=== PATIENT | female | born 1995 | race Caucasian/White ===

== ENCOUNTER 2019-10-31 18:53 | Emergency (ER) | payer OTHER, SELFPAY ==
--- NOTE | ~2019-10-31 | US_ITS ---
EXAMINATION: US OB <= 14 weeks fetus DATE: 10/31/2019 22:21 INDICATION: Abdomen pain TECHNIQUE: Real-time transabdominal and transvaginal obstetric ultrasound. FINDINGS: No prior studies for comparison. The uterus measures 8.6 x 5.5 x 6.3 cm. There is an intrauterine gestational sac, with pole asha ntified. The crown rump length measures 0.27 cm, which correlates with a estimated gestational age o f 5 weeks 6 days. Gestational sac measurements correspond to 6 week 3 day gestation. heart tone s are identified measuring 105 bpm. There is a small subchorionic hemorrhage measuring 9 x 8 x 3 mm. Left ovary is normal. There is a hypoechoic structure in the right ovary measuring up to 2.1 cm, poss ibly involuting corpus luteal cyst. No free fluid. IMPRESSION: 1. SL IUP with an EGA of 6 weeks, 1 days (EDC by current ultrasound of 06/24/2020). 2: Small subchorionic hemorrhage. 3: Probable involuting corpus luteal cyst of the right ovary measuring up to 2.1 cm. Reviewed, dictated and finalized at location A. IMPRESSION: 1. SL IUP with an EGA of 6 weeks, 1 days (EDC by current ultrasound of 06/25/19). 2: Small subchorionic hemorrhage. 3: Probable involuting corpus luteal cyst of the right ovary measuring up to 2 .1 cm.
[2019-10-31 18:58] VITALS: BP 126/61; PULSE 104; RESP 18; TEMP 36.8; O2SAT 100
[2019-10-31 20:57] VITALS: BP 161/99; PULSE 96; RESP 16; O2SAT 100
--- NOTE | 2019-10-31 21:34 | ED.ABDPAIN ---
HPI - Abdominal Pain General Chief Complaint: Abdominal Pain Stated Complaint: 6 weeks preg/ abd pain Source: RN notes reviewed History of Present Illness HPI narrative: Patient presents emergency department from home for abdominal pain. Patient states she is presently 5 weeks and has not seen NETWORK PROGRAMMER at this point. Patient states she developed lower abdominal pain described as cramping bilaterally this morning. States is associated with nausea. Patient denies having any vomiting diarrhea or vaginal bleeding. States she took no pain medication at home.. Patient is G2, P1 Related Data Allergies Allergy/AdvReac Type Severity Reaction Status Date / Time escitalopram Allergy Unknown Unknown Verified 10/31/19 20:59 sulfamethoxazole Allergy Unknown Nausea and Verified 10/31/19 20:59 Vomiting trimethoprim Allergy Unknown Nausea and Verified 10/31/19 20:59 Vomiting Review of Systems Review of Systems: Narrative: Gen.: Denies fevers or chills ENT: Denies congestion Respiratory: Denies shortness of breath or cough CV: Denies chest pain or palpitations GI: See HPI denies burning, urgency, frequency or hematuria, reports Musculoskeletal: Denies back pain or muscle pain Neuro: Denies numbness, tingling, weakness or focal weakness Skin: Denies rash Except as documented, all other systems reviewed and negative PMFSH Past Medical History Medical History (Updated 10/31/19 @ 23:48 by Harman Erickson DO) Patient denies significant medical history Social History Social History (Updated 10/31/19 @ 21:35 by Harman Erickson DO) Smoking status: Never smoker Gender identity (if verbalized by the patient): Female Exam Narrative: Exam Narrative: APPEARANCE: No acute distress, nontoxic, resting in bed HEENT: Normocephalic, atraumatic, OMM RESPIRATORY: No respiratory distress, clear to auscultation bilaterally with no rhonchi wheezing or rales CARDIOVASCULAR: RRR s murmur ABDOMINAL: Soft, nondistended, tender palpation right lower quadrant left lower quadrant, no tenderness right upper quadrant left upper quadrant, no rebound or guarding MUSCULOSKELETAl: Moves all extremities. No clubbing, cyanosis or edema. NEURO: Awake and alert. Following commands, speech normal, no focal deficits SKIN:: Warm, dry. Normal Color PSYCHIATRIC: Normal affect/mood Course Course Emergency Course: Called and discussed with NETWORK PROGRAMMER follow-up in 1-2 days for further on-call physician treatment and evaluation Dr. Mancilla. Agrees with plan for discharge at this time Patient states that they are feeling much better at this time. States abdominal pain has resolved. Repeat abdominal exam shows the patient's abdomen to be soft and nontender. Discussed with patient results of workup and diagnosis. Discussed need for follow-up with primary care physician, reasons to return to the emergency department in proper use of medication. Patient understands and agrees to current treatment plan. Patient states she is followed by Carissa Calvin at [facility] and that is who she will be following with Vital Signs Vital signs: Vital Signs Temperature 98.3 F 10/31/19 18:58 Pulse Rate 104 H 10/31/19 18:58 Respiratory Rate 18 10/31/19 18:58 Blood Pressure 126/61 10/31/19 18:58 Pulse Oximetry 100 10/31/19 18:58 Temperature 98.3 F 10/31/19 18:58 Pulse Rate 86 10/31/19 22:27 Respiratory Rate 17 10/31/19 22:27 Blood Pressure 161/99 H 10/31/19 20:57 Pulse Oximetry 100 10/31/19 22:27 MDM - Abdominal Pain Lab Data Result diagrams: 10/31/19 21:29 10/31/19 21:29 Labs: Lab Results 10/31/19 10/31/19 10/31/19 Range/Units 21:29 21:29 21:29 WBC 7.9 (4.5-10.0) K/mm3 RBC 5.09 (4.2-5.4) M/mm3 Hgb 13.8 (12.0-15.0) g/dL Hct 42.8 (37.0-47.0) % MCV 84.1 (80-100) fl MCH 27.1 (26-34) pg MCHC 32.2 (32-36) g/dl RDW 13.1 (11.5-14.5) % Plt Count 2
[2019-10-31 21:35] LABS: Basophils Absolute Auto 0.1 K/mm3 (0.0-0.1); Basophils Percent Auto 0.8 % (0.2-1.2); Eosinophils Absolute Auto 0.1 K/mm3 (0-0.3); Eosinophils Percent Auto 1.8 % (0-4.4); Hematocrit 42.8 % (37.0-47.0); Hemoglobin 13.8 g/dL (12.0-15.0); Immature Granulocyte Absolute 0.03 K/mm3 (0.00-0.031); Immature Granulocyte Percent A 0.4 % (0-0.5); Lymphocytes Absolute Auto 1.69 K/mm3 (0.9-3.2); Lymphocytes Percent Auto 21.3 % (18.3-44.2); Mean Corpuscular HGB Conc 32.2 g/dl (32-36); Mean Corpuscular Hemoglobin 27.1 pg (26-34); Mean Corpuscular Volume 84.1 fl (80-100); Mean Platelet Volume 10.6 fl (7.4-10.4); Monocytes Absolute Auto 0.6 K/mm3 (0.1-0.6); Monocytes Percent Auto 7.7 % (2.6-8.5); Neutrophils Absolute Auto 5.4 K/mm3 (1.3-6.7); Platelet Count Result 263 k/mm3 (150-375); Red Blood Count 5.09 M/mm3 (4.2-5.4); Red Cell Distribution Width 13.1 % (11.5-14.5); White Blood Count 7.9 K/mm3 (4.5-10.0)
[2019-10-31 21:39] LABS: Add Urine Microscopic? YES; Appearance Urine Cloudy (Clear); Bacteria Urine Trace /hpf; Bilirubin Urine Negative (Negative); Blood Urine Negative (Negative); Color Urine Yellow (Yellow); Glucose Urine UA Negative (Negative); Ketones Urine Negative (Negative); Leukocyte Esterase Ur Trace LEU/UL (Negative); Mucus Urine Rare /lpf; Nitrate Urine Negative (Negative); Protein Urine Negative (Negative); RBC Urine 0-2 /hpf (0-2); Specific Grav Ur 1.011 (1.001-1.035); Squamous Epithelial Cell Urine Many /hpf (Few); Urobilinogen Urine Negative mg/dL (<2.0); WBC Urine 0-3 /hpf
[2019-10-31 21:47] LABS: Alanine Aminotransferase 28 U/L (4-35); Alkaline Phosphatase 58 U/L (38-126); Aspartate Amino Transferase 32 U/L (14-36); Bilirubin,Total 0.6 mg/dL (0.2-1.3); Blood Urea Nitrogen 10 mg/dL (7-17); Calcium 9.7 mg/dL (8.4-10.2); Carbon Dioxide 26 mmol/L (22-30); Chloride 101 mmol/L (98-107); Estimated CRCL calculation 114 ml/min; Estimated Glomerular Filt Rate > 60; Glucose 89 mg/dL (65-105); Lipase 92 U/L (23-300); Sodium 138 mmol/L (137-145)
--- NOTE | 2019-10-31 22:00 | PC.NURSE ---
Pt to US
[2019-10-31 22:27] VITALS: PULSE 86; RESP 17; O2SAT 100
[2019-10-31] MEDS: SODIUM CHLORIDE 0.9% IV 1,000 ML 999 ML IV CONT (22:29)
[2019-10-31] MEDS: PROMETHAZINE HCL 25 MG/ML AMPUL 12.5 MG IV PUSH (22:56)
[2019-11-01 00:32] VITALS: BP 148/76; PULSE 84; RESP 16; TEMP 36.7; O2SAT 100
== END 2019-11-01 00:33 | disposition home or self-care (01) ==
PROVIDERS: Emergency Provider Emergency Medicine; PCP Physician Assistant
DX: O26.891 Other specified pregnancy related conditions, first trimester (principal); R10.32 Left lower quadrant pain; R10.31 Right lower quadrant pain; Z3A.01 Less than 8 weeks gestation of pregnancy
CPT/HCPCS: 36415; 76801; 80053; 81001; 81025; 83690; 84702; 85025; 96365; 96375; 99284; J0131; J2550; J7030

== ENCOUNTER 2020-03-31 14:26 | Observation (INO) | payer OTHER, SELFPAY ==
[2020-03-31] VITALS (18 sets, daily range): BP systolic 66–117; BP diastolic 38–73; PULSE 106–127; TEMP 37; O2SAT 97–100; BMI 35.9
--- NOTE | 2020-03-31 14:26 | OBADM ---
This patient, Krista Mustafa, admitted to the OB room OB Post 116 for observation. Patient/family oriented to hospital policies and general routines including ID bracelet, bed and alarms, visiting hours, pain management, procedures, bathroom and other care routines, personal items, smoking policy, room service/diet, and visiting hours. Patient/Family are encouraged to report perceived risks to care and to ask questions if they do not understand what they are told or what they should do.
[2020-03-31 14:56] LABS: Glucose Point of Care 120 (65-105)
--- NOTE | 2020-03-31 15:00 | PC.NURSE ---
Pt states she feels dizzy and seeing spots. denies nausea, vomiting. BS 120. denies hx GDM. HR 120s denies heart palpitation.
[2020-03-31 15:12] LABS: Add Urine Microscopic? YES; Appearance Urine Cloudy (Clear); Bacteria Urine Trace /hpf; Bilirubin Urine Negative (Negative); Blood Urine Negative (Negative); Color Urine Yellow (Yellow); Glucose Urine UA Negative (Negative); Ketones Urine Trace mg/dL (Negative); Leukocyte Esterase Ur Trace LEU/UL (NEGATIVE); Mucus Urine Rare /lpf; Nitrate Urine Negative (Negative); Protein Urine 1+ mg/dL (Negative); Specific Grav Ur 1.014 (1.001-1.035); Squamous Epithelial Cell Urine Many /hpf (Few); Urobilinogen Urine Negative mg/dL (<2.0); WBC Urine 0-3 /hpf (0-3)
--- NOTE | 2020-03-31 15:16 | PCDIET ---
called Dr. Welch notified pt walk-in admission. report given pt complains of dizziness, BS, Vital sign. UA result. made aware of HR 120s, EKG was ordered. order deceived PO hydration. May discharge to home if EKG result is sinus tachycardia. follow up with primary OB doctor.
--- NOTE | 2020-03-31 15:20 | ECG_ITS ---
Measurements Intervals [place] Rate: 109 P: 20 IN: 141 QRS: 1 QRSD: 97 T: -8 QT: 328 QTc: 443 Interpretive Statements SINUS TACHYCARDIA VOLTAGE CRITERIA FOR LVH MINIMAL Q WAVES- HIGH LATERAL LEADS BORDERLINE T WAVE ABNORMALITY- INFERIOR LEADS ABNORMAL ECG Electronically Signed On 03-31-2020 15:45:49 EQUAL OPPORTUNITY REPRESENTATIVE by Kris Leahy D.O.
--- NOTE | 2020-03-31 15:41 | PC.NURSE ---
EKG at bedside. sinus tachycardia.
--- NOTE | 2020-04-02 07:09 | P.PNOB_ITS ---
OB - Triage/Final Diagnosis Visit Information Date of evaluation: 03/31/20 Reason for evaluation: other (dizziness, near syncope ) Evaluation Laboratory results: Laboratory Tests 03/31/20 03/31/20 14:47 14:53 POC Capillary Glucose 120 H Urine Color Yellow Urine Appearance Cloudy H Urine pH 7.0 Ur Specific [place] 1.014 Urine Protein 1+ H Urine Glucose (UA) Negative Urine Ketones Trace Ur Blood (Man) Negative Urine Nitrate Negative Urine Bilirubin Negative Urine Urobilinogen Negative Ur Leukocyte Esterase Trace H Urine RBC 3-5 H Urine WBC 0-3 Ur Squamous Epith Cells Many H Urine Bacteria Trace Hyaline Casts 1-2 Urine Mucus Rare
== END 2020-03-31 16:00 | disposition home or self-care (01) ==
PROVIDERS: Admitting Provider Student in an Organized Health Care Education/Training Program; PCP Physician Assistant; Visit Provider Student in an Organized Health Care Education/Training Program
DX: O26.893 Other specified pregnancy related conditions, third trimester (principal); R42 Dizziness and giddiness; R94.31 Abnormal electrocardiogram [ECG] [EKG]; Z3A.00 Weeks of gestation of pregnancy not specified
CPT/HCPCS: 81001; 87086; 87088; 93005; G0378; G0379

== ENCOUNTER 2021-07-23 12:59 | Outpatient (CLI) | payer OTHER, SELFPAY ==
--- NOTE | ~2021-07-23 | US_ITS ---
EXAMINATION: US thyroid EXAM DATE: 07/23/2021 14:01 INDICATION: Thyroid disorder. TECHNIQUE: Multiple grayscale and Doppler images of the thyroid were obtained (by a technologist who performed the scan) and subsequently reviewed. Individual nodules and recommendations may be reporte d in accordance with TI-RADS system as designated by the 2017 ACR White Paper TI-RADS committee. The re is no prior study for comparison. FINDINGS: The right thyroid lobe measures 4.7 x 2.0 x 2.3, the left measuring 4.5 x 1.9 x 1.5 cm. There is homo geneous thyroid echogenicity. No focal nodule is identified. IMPRESSION: 1. Unremarkable thyroid ultrasound exam. Reviewed, dictated and finalized at location B.
== END 2021-07-23 13:00 | disposition home or self-care (01) ==
PROVIDERS: PCP Nurse Practitioner Adult Health; Visit Provider Nurse Practitioner Adult Health
DX: E07.9 Disorder of thyroid, unspecified (principal)
CPT/HCPCS: 76536

== ENCOUNTER 2021-08-06 13:39 | Outpatient (CLI) | payer OTHER, SELFPAY ==
--- NOTE | 2021-08-06 | ECHO_ITS ---
Patient Info Name: Krista Mustafa Age: 25 years : 1995 Gender: Female Ht: 64 in Wt: 240 lbs BSA: 2.27 m2 HR: 78 bpm BP: 114 / 86 mmHg Technical Quality: Fair Exam Date: 08/06/2021 2:25 PM Exam Location: [facility] Patient Status: Outpatient Admit Date: 08/06/2021 Staff Ordering Physician: JuanjoseJuliet NP Teletype Mechanic: Cheyenne Carranza RDCS Attending Provider: CareyJuliet NP Exam Type: CA echo doppler color flow Study Info Indications - SHEA Complete two-dimensional, color flow and Doppler transthoracic echocardiogram is performed. Summary 1. Complete two-dimensional, color flow and Doppler transthoracic echocardiogram is performed. 2. Left ventricular chamber dimension is normal. 3. Left ventricular systolic function is normal, estimated at 60-65%. 4. The left ventricular diastolic function is normal. 5. E/e' 5 is not elevated. 6. There is trace tricuspid valve regurgitation. 7. No pulmonary hypertension, estimated pulmonary arterial systolic pressure is 26 mmHg. Left Ventricle E/e' 5 is not elevated. Left ventricular chamber dimension is normal. Left ventricular systolic function is normal, estimated at 60-65%. The left ventricular diastolic function is normal. Right Ventricle Right ventricular chamber dimension is normal. Right ventricular systolic function is normal. Left Atria Left atrial chamber dimension is normal. Right Atria Right atrial chamber dimension is normal. Aortic Valve The aortic valve is trileaflet. There is no aortic valve stenosis. There is no aortic valve regurgitation. Pulmonic Valve There is no pulmonic regurgitation. Mitral Valve There is no mitral valve stenosis. There is no mitral valve regurgitation. Tricuspid Valve There is trace tricuspid valve regurgitation. No pulmonary hypertension, estimated pulmonary arterial systolic pressure is 26 mmHg. Pericardium/Pleural There is no pericardial effusion. Inferior Vena Cava Normal inferior vena cava with >50% collapse upon inspiration consistent with normal right atrial pressure, 5 mmHg. Aorta The aortic root size at the sinus of Valsalva is normal. Left Ventricular Outflow Tract Name Value Normal LVOT 2D LVOT Diameter 2.0 cm LVOT Doppler LVOT Peak Gradient 6 mmHg LVOT Mean Gradient 3 mmHg LVOT VTI 21 cm LVOT VTI/AV VTI Ratio 1.0 LVOT Stroke Volume 65 ml LVOT CO 15.7 l/min LVOT CI 6.9 l/min/m2 Pulmonic Valve Name Value Normal PV Doppler PV Peak Gradient 4 mmHg Mitral Valve Name
== END 2021-08-06 13:40 | disposition home or self-care (01) ==
LOC: ANHCARD 13:40
PROVIDERS: PCP Nurse Practitioner Adult Health; Visit Provider Nurse Practitioner Adult Health
DX: R60.0 Localized edema (principal)
CPT/HCPCS: 93306

== ENCOUNTER 2023-12-12 17:15 | Emergency (ER) | payer OTHER, SELFPAY ==
--- NOTE | ~2023-12-12 | US_ITS ---
EXAMINATION: US abdomen limited DATE: 12/12/2023 17:57 INDICATION: Right upper quadrant abdominal pain TECHNIQUE: Multiple grayscale and Doppler ultrasound images of the abdomen were obtained. COMPARISON: CT dated 11/03/2013 FINDINGS: The pancreatic head and body are normal in appearance. The pancreatic tail is not visualized. Liver has normal echogenicity and contour, with a smooth surface. No liver lesion identified. No intrahepat ic biliary duct dilation suspected. Portal venous flow was seen in the hepatopetal, normal direction and has normal Doppler waveform. Visualized proximal inferior vena cava is normal. Multiple mobile ec hogenic and shadowing gallstones within the otherwise normal-appearing gallbladder. The common bile d uct is mildly dilated to C6-7 millimeters in maximal diameter. Sonographic Antonio sign was reported a s positive by the management associate. IMPRESSION: 1. Cholelithiasis with borderline common bile duct dilation measuring up to 6-7 mm but without intrah epatic biliary ductal dilation. Correlate with liver function tests and if clinically indicated could consider MRCP to assess for potential obstructing choledocholithiasis. 2. Positive sonographic Antonio sign but with normal nondilated gallbladder. Suspicion for acute deepika cystitis is low. Could consider HIDA scan for further evaluation as clinically indicated. Reviewed, dictated and finalized at location A. IMPRESSION: 1. Cholelithiasis with borderline common bile duct dilation measuring up to 6-7 mm but without intrahepatic biliary ductal dilation. Correlate with liver func tion tests and if clinically indicated could consider MRCP to assess for potent ial obstructing choledocholithiasis. 2. Positive sonographic Antonio sign but with normal nondilated gallbladder. Lina picion for acute cholecystitis is low. Could consider HIDA scan for further isidra luation as clinically indicated.
[2023-12-12 17:18] VITALS: BP 135/97; PULSE 99; RESP 16; TEMP 36.6; O2SAT 97
--- NOTE | 2023-12-12 17:21 | ED.ABDPAIN ---
HPI - Abdominal Pain General Chief Complaint: Abdominal Pain Stated Complaint: gallbladder attack Time Seen by Provider: 12/12/23 19:03 FOCUSED HPI: GENERAL: WELL-APPEARING, WELL-NOURISHED, AND IN NO ACUTE DISTRESS. HEAD: NORMOCEPHALIC, ATRAUMATIC. CHEST: CLEAR TO AUSCULTATION. NO RESPIRATORY DISTRESS. HEART: REGULAR RATE AND RHYTHM. NEURO: ALERT AND ORIENTED X3. PATIENT SCREENED IN TRIAGE AND INITIAL ORDERS PLACED. ADDITIONAL CARE AND DISPOSITION TO BE BASED UPON DIAGNOSTIC TESTING AND TREATMENT. 28 YO female presents to ER with c/o RUQ pain for over 1 month. States has been evaluated at multiple ER's in last 1 month, and dx with cholelithiasis. Has an appointment with gen surg tomorrow for surgical consultation for a cholecystectomy. Associated with n/v. Taking tylenol without improvement. Related Data Home Medications Medication Instructions Recorded Confirmed metoclopramide HCl 10 mg tablet 10 mg PO Q6H PRN Nausea 03/31/20 03/31/20 (Reglan) ondansetron HCl 4 mg tablet 4 mg PO Q6H 03/31/20 03/31/20 (Zofran) vit no.95-ferrous 1 tablet PO DAILY 03/31/20 03/31/20 fumarate 28 mg-folic acid 800 mcg tablet () Allergies Allergy/AdvReac Type Severity Reaction Status Date / Time escitalopram Allergy Unknown Unknown Verified 10/31/19 20:59 sulfamethoxazole Allergy Unknown Nausea and Verified 10/31/19 20:59 Vomiting trimethoprim Allergy Unknown Nausea and Verified 10/31/19 20:59 Vomiting PMFSH Past Medical History Medical History Patient denies significant medical history Social History Social History Smoking status: Never smoker Gender identity (if verbalized by the patient): Female Course Vital Signs Vital signs: Vital Signs Temperature 36.6 C 12/12/23 17:18 Pulse Rate 99 12/12/23 17:18 Respiratory Rate 16 12/12/23 17:18 Blood Pressure 135/97 H 12/12/23 17:18 Pulse Oximetry 97 12/12/23 17:18 Oxygen Delivery Room Air 12/12/23 17:18 Temperature 36.6 C 12/12/23 17:18 Pulse Rate 89 12/12/23 19:37 Respiratory Rate 18 12/12/23 19:37 Blood Pressure 127/88 12/12/23 19:37 Pulse Oximetry 98 12/12/23 19:37 Oxygen Delivery Room Air 12/12/23 17:18 MDM - Abdominal Pain Lab Data 12/12/23 17:37 12/12/23 17:36 Labs: Lab Results 12/12/23 12/12/23 12/12/23 Range/Units 17:36 17:37 17:42 WBC 8.3 (4.5-10.0) K/mm3 RBC 4.82 (4.2-5.4) M/mm3 Hgb 13.1 (12.0-15.0) g/dL Hct 40.8 (37.0-47.0) % MCV 84.6 (80-100) fl MCH 27.2 (26-34) pg MCHC 32.1 (32-36) g/dl RDW 13.0 (11.5-14.5) % Plt Count 268 (150-375) k/mm3 MPV 10.2 (7.4-10.4) fl Immature Gran % (Auto) 0.2 (0-0.5) % Neut % (Auto) 69.3 (45.5-73.1) % Lymph % (Auto) 22.6 (18.3-44.2) % Ray % (Auto) 6.5 (2.6-8.5) % Eos % (Auto) 1.0 (0-4.4) % Baso % (Auto) 0.4 (0.2-1.2) % Lymph # (Auto) 1.88 (0.9-3.2) K/mm3 Ray # (Auto) 0.5 (0.1-0.6) K/mm3 Eos # (Auto) 0.1 (0-0.3) K/mm3 Baso # (Auto) 0.0 (0.0-0.1) K/mm3 Abs Immat Gran (auto) 0.02 (0.00-0.031) K/mm3 Absolute Neuts (auto) 5.8 (1.3-6.7) K/mm3 Absolute Nucleated RBC 0.000 (0.0-0.012) K/mm3 Nucleated RBC % 0.0 (0.0-0.2) % PT 13.3 (11.1-14.7) Seconds INR 1.0 APTT 25.1 (22.3-36.8) Seconds Sodium 139 (137-145) mmol/L Potassium 3.9 (3.4-5.0) mmol/L Chloride 103 (98-107) mmol/L Carbon Dioxide 25 (22-30) mmol/L Anion Gap 11 (4-12) mmol/L BUN 7 (7-17) mg/dL Creatinine 0.80 (0.7-1.0) mg/dL Estim Creat Clear Calc 90 ml/min Estimated GFR > 60 (59 - ) Glucose 90 (65-110) mg/dL Calcium 9.7 (8.4-10.2) mg/dL Total Bilirubin 0.4 (0.2-1.3) mg/dL AST 19 (14-36) U/L ALT 11 (6-35) U/L Alkaline Phosphatase 62 (
[2023-12-12 17:44] LABS: BEDSIDEPREGUCG Negative
[2023-12-12 18:04] LABS: Basophils Percent Auto 0.4 % (0.2-1.2); Eosinophils Absolute Auto 0.1 K/mm3 (0-0.3); Hematocrit 40.8 % (37.0-47.0); Hemoglobin 13.1 g/dL (12.0-15.0); Immature Granulocyte Absolute 0.02 K/mm3 (0.00-0.031); Immature Granulocyte Percent A 0.2 % (0-0.5); Lymphocytes Absolute Auto 1.88 K/mm3 (0.9-3.2); Lymphocytes Percent Auto 22.6 % (18.3-44.2); Mean Corpuscular HGB Conc 32.1 g/dl (32-36); Mean Corpuscular Hemoglobin 27.2 pg (26-34); Mean Corpuscular Volume 84.6 fl (80-100); Mean Platelet Volume 10.2 fl (7.4-10.4); Monocytes Absolute Auto 0.5 K/mm3 (0.1-0.6); Monocytes Percent Auto 6.5 % (2.6-8.5); Neutrophils Absolute Auto 5.8 K/mm3 (1.3-6.7); Neutrophils Percent Auto 69.3 % (45.5-73.1); Platelet Count Result 268 k/mm3 (150-375); Red Blood Count 4.82 M/mm3 (4.2-5.4); White Blood Count 8.3 K/mm3 (4.5-10.0)
[2023-12-12 18:14] LABS: Alanine Aminotransferase 11 U/L (6-35); Albumin Level 4.6 g/dL (3.5-5.1); Alkaline Phosphatase 62 U/L (38-126); Anion Gap 11 mmol/L (4-12); Aspartate Amino Transferase 19 U/L (14-36); Bilirubin,Total 0.4 mg/dL (0.2-1.3); Blood Urea Nitrogen 7 mg/dL (7-17); Calcium 9.7 mg/dL (8.4-10.2); Carbon Dioxide 25 mmol/L (22-30); Chloride 103 mmol/L (98-107); Estimated CRCL calculation 90 ml/min; Estimated Glomerular Filt Rate > 60; Glucose 90 mg/dL (65-110); Lipase 43 U/L (23-300); Potassium 3.9 mmol/L (3.4-5.0); Sodium 139 mmol/L (137-145)
[2023-12-12 18:16] LABS: Prothrombin Time 13.3 Seconds (11.1-14.7)
[2023-12-12 18:17] LABS: Partial Thromboplastin Time 25.1 Seconds (22.3-36.8)
[2023-12-12 18:58] LABS: Add Urine Microscopic? NO; Appearance Urine Clear (Clear); Bilirubin Urine Negative (Negative); Blood Urine Negative (Negative); Color Urine Yellow (Yellow); Glucose Urine UA Negative (Negative); Ketones Urine Negative (Negative); Leukocyte Esterase Ur Negative LEU/UL (Negative); Nitrate Urine Negative (Negative); Protein Urine Negative (Negative); Specific Grav Ur 1.009 (1.001-1.035); Urobilinogen Urine 0.2 mg/dL (<2.0); pH Urine 7.5 (5.0-9.0)
--- NOTE | 2023-12-12 19:04 | ED.ABDPAIN ---
HPI - Abdominal Pain General Chief Complaint: Abdominal Pain Stated Complaint: gallbladder attack Time Seen by Provider: 12/12/23 19:03 Source: patient Mode of arrival: ambulatory Limitations: no limitations History of Present Illness HPI narrative: 28 YEARS OLD WHITE FEMALE HISTORY OF RIGHT UPPER QUADRANT PAIN AND GALLBLADDER ISSUES FOR YEARS, IS GETTING WORSE. HER WAS SEEN BY FACILITY SUPERVISOR AT [facility] AND SCHEDULED TO BE SEEN BY A SURGEON TOMORROW. FLARE UP OF PAIN STARTED LAST NIGHT, DENIES ANY FEVER, CHILLS, NAUSEA, VOMITING. PATIENT WOULD LIKE TO BE TAKING CARE BY FACILITY SUPERVISOR AND SURGEON IN OUR FACILITY BECAUSE THE OTHER HOSPITALIST FOR AWAY. PATIENT DOES NOT TAKE MEDICINE AT HOME, HEALTHY OTHERWISE. Related Data Home Medications Medication Instructions Recorded Confirmed metoclopramide HCl 10 mg tablet 10 mg PO Q6H PRN Nausea 03/31/20 03/31/20 (Reglan) ondansetron HCl 4 mg tablet 4 mg PO Q6H 03/31/20 03/31/20 (Zofran) vit no.95-ferrous 1 tablet PO DAILY 03/31/20 03/31/20 fumarate 28 mg-folic acid 800 mcg tablet () Allergies Allergy/AdvReac Type Severity Reaction Status Date / Time escitalopram Allergy Unknown Unknown Verified 10/31/19 20:59 sulfamethoxazole Allergy Unknown Nausea and Verified 10/31/19 20:59 Vomiting trimethoprim Allergy Unknown Nausea and Verified 10/31/19 20:59 Vomiting Review of Systems Review of Systems: All systems reviewed & are unremarkable except as noted in HPI and below PMFSH Past Medical History Medical History Patient denies significant medical history Social History Social History Smoking status: Never smoker Gender identity (if verbalized by the patient): Female Exam Narrative: GENERAL APPEARANCE: WELL-DEVELOPED, WELL-NOURISHED SKIN: NORMAL COLOR HEAD: NORMOCEPHALIC, NONTRAUMATIC EYES: CLEAR CONJUNCTIVA ENT: OROPHARYNX NORMAL, EARS NORMAL, NOSE NORMAL NECK: SUPPLE, NONTENDER CHEST AND RESPIRATORY: AIRWAY PATENT, NO RESPIRATORY DISTRESS, NO ACCESSORY MUSCLE USE HEART: REGULAR RATE/RHYTHM ABDOMEN: SOFT, MILD TENDERNESS RIGHT UPPER QUADRANT, NO GUARDING REBOUND, QUITE BOWEL SOUNDS VASCULAR: NORMAL PERIPHERAL PULSES, NORMAL CAPILLARY REFILL. MUSCULOSKELETAL: NORMAL RANGE OF MOTION, NONTENDER BACK NEUROLOGIC: ALERT AND ORIENTED ?3, RIM TURNING MACHINE OPERATOR IS NORMAL TESTED, NO GROSS MOTOR DEFICIT Course Vital Signs Vital signs: Vital Signs Temperature 36.6 C 12/12/23 17:18 Pulse Rate 99 12/12/23 17:18 Respiratory Rate 16 12/12/23 17:18 Blood Pressure 135/97 H 12/12/23 17:18 Pulse Oximetry 97 12/12/23 17:18 Oxygen Delivery Room Air 12/12/23 17:18 Temperature 36.6 C 12/12/23 17:18 Pulse Rate 99 12/12/23 17:18 Respiratory Rate 16 12/12/23 17:18 Blood Pressure 135/97 H 12/12/23 17:18 Pulse Oximetry 97 12/12/23 17:18 Oxygen Delivery Room Air 12/12/23 17:18 MDM - Abdominal Pain MDM Narrative Medical decision making narrative: Patient been having right upper quadrant pain for years, is telling me is getting worse over the last few months. Patient was seen by machine heel builder for that last time was 2 months ago, scheduled to see a surgeon tomorrow. Vital signs on arrival are stable Physical examination showed mild tenderness right upper quadrant, no guarding or rebound Blood workup today showed no significant abnormalities, normal liver enzymes, normal bilirubin. There is no possibility of biliary duct obstruction at this time Gallbladder ultrasound showed no evidence of cholecystitis or cho
[2023-12-12] MEDS: ONDANSETRON HCL ODT 4 MG TABLET PO (19:26)
[2023-12-12] MEDS: HYDROmorphone HCL INJ (*CRX) 1 MG/ML SYR IM (19:26)
[2023-12-12 19:37] VITALS: BP 127/88; PULSE 89; RESP 18; O2SAT 98
== END 2023-12-12 19:38 | disposition home or self-care (01) ==
PROVIDERS: Nurse Practitioner Family; Emergency Provider Emergency Medicine
DX: R10.11 Right upper quadrant pain (principal); K80.20 Calculus of gallbladder without cholecystitis without obstruction
CPT/HCPCS: 36415; 76705; 80053; 81003; 81025; 83690; 85025; 85610; 85730; 96372; 99284; A9270; J1170

== ENCOUNTER 2024-12-18 11:12 | Outpatient (CLI) | payer OTHER, SELFPAY ==
--- OUTSIDE RECORDS SUMMARY | 2024-09-30 06:20 | XMS_ITS ---
Author Organization [facility] Address [address] [place] [address] Care Team Providers Care Meat Team Lead Name Role Phone Vanesa Tracy Primary Care Provider Jessica Bianchi Unavailable [phone] REASON FOR VISIT lab Social History Sex Assigned At : Social History Observation Description Sex Assigned At Female Encounters Encounter Location Date Provider Diagnosis [address] [address] 09/30/2024 Vanesa Tracy Plan Of Treatment No Information Progress Notes * Petrona MUSTAFAOB:[birth year] (29 yo F)Acc No.[id number]:09/30/2024 UNLOCKED PROGRESS NOTE Patient: Krista GARNICA Provider: BRADLEY Hurd :1995 A ge:28 Y S ex:Female Date:09/30/2024 Address:[address], [address], [place], [place] Subjective: * Chief Complaints: * 1 . Lab. * Medical History: Objective: * Vitals: Assessment: Plan: * Treatment: * * Electronic signature of Anabell Tracy on 12/18/2024 at 11:36 AM CDT Sign off status: Pending * Provider: BRADLEY Hurd Date: 0 09/30/2024 Generated for Soraya zamorano/Antonette/Jlitting on: 0 12/18/2024 11:36 AM CDT
--- OUTSIDE RECORDS SUMMARY | 2024-12-18 11:36 | XMS_ITS | Clinical Summary ---
Author Organization [facility] [address] [facility] Address [address] [place] [address] Care Team Providers Care Human Services Worker Name Role Phone Ayala Matute MD Primary Care Provider [phone] Allergies Active Allergy Reactions Criticality Noted Date Comments Cigarette Smoke Other (See comments) Low 09/06/2022 Dog Dander Other (See comments) Low 09/06/2022 Erythromycin Anaphylaxis High 09/09/2021 Escitalopram Anaphylaxis,Stomach upset High 06/17/2020 Stomach/GI Upset House Dust Other (See comments) Low 09/06/2022 Sulfa (Sulfonamide Antibiotics) Anaphylaxis High 11/06/2013 Sulfamethoxazole-Trimet hoprim Stomach upset,Nausea And Vomiting,Other (See comments) Low 03/05/2014 Stomach/GI Upset Medications Nextstellis 3 mg- 14.2 mg (28) tablet Take 1 tablet by mouth daily 09/02/19 23 Active famotidine (PEPCID) 40 mg tablet famotidine 40 mg tablet TAKE 1 TABLET BY MOUTH ONCE DAILY Active omeprazole (PriLOSEC) 40 mg capsule omeprazole 40 mg capsule,delayed release TAKE 1 CAPSULE BY MOUTH ONCE DAILY Active ondansetron ODT (ZOFRAN-ODT) 4 mg disintegrating tablet ondansetron 4 mg disintegrating tablet DISSOLVE 1 TABLET IN MOUTH EVERY 6 HOURS NEEDED FOR NAUSEA Active ALPRAZolam (XANAX) 0.25 mg tablet Take 1-2 tablets (0.25-0.5 mg total) by mouth 1 time if needed for anxiety for up to 1 dose 1-2 tablets by mouth 30 minutes prior to procedure 2 tablet 01/24/20 23 Active rizatriptan (MAXALT) 10 mg tabletIndications: Migraine Take 1 tablet (10 mg total) by mouth once as needed for migraine May repeat in 2 hours if unresolved. Do not exceed 30 mg in 24 hours. 9 tablet 2 02/04/20 23 Active albuterol HFA (PROVENTIL HFA,VENTOLIN HFA,PROAIR HFA) 90 mcg/actuation inhaler Inhale 2 puffs every 4 (four) hours as needed for shortness of breath or wheezing 8 g 05/23/19 24 Active sucralfate (CARAFATE) 1 gram tabletIndications: Abdominal pain Take 1 tablet (1 g total) by mouth 4 (four) times a day Take 1 hour before meals and at bedtime 120 tablet 3 10/20/19 24 Active dicyclomine (BENTYL) 20 mg tabletIndications: Abdominal pain Take 1 tablet (20 mg total) by mouth 3 (three) times a day as needed (abdominal pain) 90 tablet 6 01/22/20 24 Active Active Problems Problem Noted Date Diagnosed Date Change in bowel habits 02/08/2023 Assessment & Plan (02/08/2023 6:54 AM CDT): -the past year change in bowel movements but is on the constipated side blood in her stool at times and overflow diarrhea. Pt has never had colonscopy in the past -schedule colonoscopy -The risks (risks of bleeding, infection, perforation requiring surgery, missed polyps/cancer, dental injury, aspiration pneumonia, anesthesia complications such as drug reaction and cardiopulmonary complications including rare chance of ), benefits, and alternatives of the planned procedure were explained to the patient who understands and consents to having procedure done. Gastroesophageal reflux disease without esophagi tis 02/07/2023 Assessment & Plan (02/08/2023 6:52 AM CDT): -continue PPI and Pepcid -Twelve weeks of PPI usage and patient is still having symptoms. EGD ordered to further evaluate -RECOMMENDATIONS given include: anti-reflux maneuvers, Avoid acidic foods like oranges and tomatoes., avoidance of spicy foods, avoid eating 3-4 hours before bed, elevation of the head of the bed, and weight loss Abdominal pain 02/07/2023 Assessment & Plan (02/08/2023 6:52 AM CDT): -CT scan of abdomen and pelvis with and without contrast ordered -CBC CMP lipase and celiac screen ordered -schedule EGD The risks (risks of bleeding, infection, perforation requiring surgery, missed polyps/cancer, dental injury, aspiration pneumonia, anesthesia complications such as drug reaction and cardiopulmonary complications including rare chance of ), benefits, and alternatives of the planned procedure were explained to the patient who understands and consents to having procedure done. 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 Gender Identity Female 09/07/2022 6:45 AM CDT Sexual Orientation Not on file Obstetrics History Last Filed Vital Signs Vital Sign Reading Time Taken Comments Blood Pressure 108/74 02/07/2023 1:34 PM CDT Pulse 88 02/07/2023 1:34 PM CDT Temperature 36.6 C (97.9 F) 06/17/2020 7:49 AM SEPARATOR OPERATOR Respiratory Rate - - Oxygen Saturation 98% 09/06/2022 10:31 AM CDT Inhaled Oxygen Concentration - - Weight 89 kg (196 lb 1.6 oz) 02/07/2023 1:34 PM CDT Height 162.6 cm (5' 4) 02/07/2023 1:34 PM CDT Body Mass Index 33.66 02/07/2023 1:34 PM CDT Plan of Treatment Health Maintenance Due Date Last Done Comments Cervical Cancer Screening 1993 Depression Screening 1993 Hepatitis C Screening 1993 Varicella Vaccines (1 of 2 - 13+ 2-dose series) 2006 Hepatitis B Screening 12/11/2011 Regular Well Visit/Exam 18-64 12/11/2011 HPV Vaccines (1 - 3-dose SCD M series) 2020 Influenza Vaccine (#1) 2024 , 03/05/2019, 06/23/2015 DTaP/Tdap/Td Vaccine (3 - Td or Tdap) 06/19/2030 06/19/2020, 06/23/2015 Pneumococcal vaccine <65 Aged Out No longer eligible based on patient's age to complete this topic Insurance [address] [place] [phone] [facility] Care Teams Human Services Worker Relationship Specialty Start Date End Date Ayala Matute MD [address] [place] [phone] PCP - General Obstetrics and Gynecology 11/21/23
--- OUTSIDE RECORDS SUMMARY | 2024-12-18 11:36 | XMS_ITS | Patient Health Record ---
Author Organization [facility] Address [address] [place] [address] Care Team Providers Care Wood Processing Worker Name Role Phone Vanesa Tracy Primary Care Provider [phone] Jessica Bianchi Unavailable [phone] Celine Quintana Unavailable [phone] Aissatou Paula Unavailable [phone] Elena Jerome Unavailable [phone] Allergies Allergen (clinical drug ingredient) Drug/Non Drug Allergy documented on EMR Reaction Allergy Type Onset Date Status escitalopram Lexapro (uncoded) anaphylaxis Allergy Active Substance with sulfonamide structure and antibacterial mechanism of action (substance) sulfa (uncoded) anaphylaxis Allergy Active doxycycline Doxycycline anaphylaxis Drug Allergy A ctive Results Component Value Reference Range Notes Amylase, Serum Reviewed date:10/03/2024 08:21:14 AM Interpretation: Performing Lab:[facility] [address] [place] [address], Phone - [phone], Director - PhDRicchinichoi Notes/Report: Amylase 58 31-110 U/L Lipase, Serum Reviewed date:11/19/2024 03:09:20 PM Interpretation: Performing Lab:[facility] Phone - [phone], Director - PhDRicchiuti Notes/Report: Lipase 21 14-72 U/L TSH reflex to T4F Reviewed date:10/03/2024 08:21:23 AM Interpretation: Performing Lab:[facility] Phone - [phone], Director - [facility] Notes/Report: TSH 1.170 0.450-4.500 uIU/mL CBC With Differential/Platel et* Reviewed date:10/03/2024 08:20:50 AM Interpretation: Performing Lab:[facility], [address] [facility], Phone - [phone], Director - [facility] Notes/Report: WBC 6.9 3.4-10.8 x10E3/uL RBC 5.20 3.77-5.28 x10E6/uL Hemoglobin 13.8 11.1-15.9 g/dL Hematocrit 43.3 34.0-46.6 % MCV 83 79-97 fL MCH 26.5 26.6-33.0 pg MCHC 31.9 31.5-35.7 g/dL RDW 12.9 11.7-15.4 % Platelets 294 150-450 x10E3/uL Neutrophils 67 Not Estab. % Lymphs 22 Not Estab. % Monocytes 8 Not Estab. % Eos 2 Not Estab. % Basos 1 Not Estab. % Neutrophils (Absolute) 4.7 1.4-7.0 x10E3/uL Lymphs (Absolute) 1.5 0.7-3.1 x10E3/uL Monocytes(Absolute) 0.6 0.1-0.9 x10E3/uL Eos (Absolute) 0.1 0.0-0.4 x10E3/uL Baso (Absolute) 0.0 0.0-0.2 x10E3/uL Immature Granulocytes 0 Not Estab. % Immature Grans (Abs) 0.0 0.0-0.1 x10E3/uL Lipid Panel* Reviewed date:10/03/2024 08:20:58 AM Interpretation: Performing Lab:[facility], [address] [facility], Phone - [phone], Director - [facility] Notes/Report: Cholesterol, Total 239 100-199 mg/dL Triglycerides 150 0-149 mg/dL HDL Cholesterol 47 >39 mg/dL VLDL Cholesterol Chilo 27 5-40 mg/dL LDL Chol Calc (NIH) 165 0-99 mg/dL CMP 14 Comprehensive Metabol ic Panel* Reviewed date:10/03/2024 08:20:42 AM Interpretation: Performing Lab:[place] [id number] [facility], Phone - [phone], Director - PhDRickeyonnai Notes/Report: Glucose 88 70-99 mg/dL BUN 10 6-20 mg/dL Creatinine 0.84 0.57-1.00 mg/dL eGFR 96 >59 mL/min/1.73 BUN/Creatinine Ratio 12 9-23 Sodium 140 134-144 mmol/L Potassium 4.2 3.5-5.2 mmol/L Chloride 103 96-106 mmol/L Carbon Dioxide, Total 21 20-29 mmol/L Calcium 9.6 8.7-10.2 mg/dL Protein, Total 6.8 6.0-8.5 g/dL Albumin 4.8 4.0-5.0 g/dL Globulin, Total 2.0 1.5-4.5 g/dL Bilirubin, Total 0.6 0.0-1.2 mg/dL Alkaline Phosphatase 80 44-121 IU/L AST (SGOT) 22 0-40 IU/L ALT (SGPT) 17 0-32 IU/L Hemoglobin A1c Reviewed date:10/03/2024 08:21:07 AM Interpretation: Performing Lab:[facility] [place], [address] [facility], Phone - [phone], Director - Rickeyonnai Notes/Report: Hemoglobin A1c 5.2 Reference Range: [place] [employer] (ADA) Guidelines: <5.7: Decreased risk for diabetes 5.7 - 6.4: Increased risk for diabetes >6.4: Ongoing Hyperglycemia of any cause <7.0: Glycemic control for adults with diabetes Estimated Average Glucose 103 Ultrasound : Pelvis Reviewed date:12/09/2024 01:27:13 PM Interpretation: Performing Lab: Notes/Report: Ultrasound : Abd/Aorta Comp Reviewed date:11/27/2024 03:29:05 PM Interpretation: Performing Lab: Notes/Report: Reason For Referral Reason needs general surgeo n to evaluate abdominal pain and gallbladder dysfunction, wants to go to [facility] Diagnosis 1 Abdominal pain (R10. 9) Diagnosis 2 Gallstones (K80.20) Referral Organization [facility] Referring Provider First Name Vanesa Referring Provider Last Name Demarcus Referring Provider Speciality Psychiatry Referred Provider Specialty General Surg fuentes General Notes Aissatou Basilio RN 2024 01:12:40 PM >Referral and records faxed.Praful RN, Jennifer A 2024 01:35:47 PM >Referral letter mailed to patient. Clinical Notes [facility], [address], [address], [place]. [address], , Referral Priority Routine Reason syncope, wants cardi ology associated with [facility] Diagnosis 1 Irregular heart rate (I49.9) Referral Organization [facility] Referring Provider First Name Vanesa Referring Provider Last Name Demarcus Referring Provider Speciality Psychiatry Referred Provider Specialty Cardiology General Notes Aissatou aBsilio RN 12/06/2024 02:49:12 PM >Referral and records faxed.Praful RN, Jennifer A 2024 01:34:41 PM >Referral letter mailed to patient. Clinical Notes [facility], [address], [address], [place]. [address], , Referral Priority Routine Medications Medication SIG (Take, Route, Frequency, Duration) Notes Start Date End Date Status Omeprazole 40 MG 1 capsule 30 minutes before morning meal Orally Once a day; Duration: 30 days Active Famotidine 40 MG 1 tablet at bedtime Orally Once a day; Duration: 30 days Active Bentyl Not-Taking ARIPiprazole 5 MG 1 tablet Orally Once a day; Duration: 14 days 10/28/2024 Active Nextstellis 3-14.2 MG 1 tablet Orally On ce a day; Duration: 28 days Active busPIRone HCl 5 MG 1 tablet Orally Twic e a day; Duration: 14 days 10/28/2024 Active Naproxen 500 MG 1 tablet with food o r milk as needed Orally twice a day Active Ondansetron HCl 4 MG 1 tablet Orally 3 t imes a day; Duration: 30 days Active Social History Tobacco Use: Social History Observation Description Date Details (start date - stop date) Never Smoker NA - NA Sex Assigned At : Social History Observation Description Sex Assigned At Female Tobacco Control (Standard) Question Answer Notes Tobacco use: Nonsmoker Additional Findings: Tobacco non-user Ne libby chewed tobacco,Never used moist powdered tobacco Problems Problem Type SNOMED Code ICD Code Onset Dates Problem Status W/U Status Risk Notes Problem Gastroesophageal reflux disease (882134071) GERD (gastroesophag eal reflux disease) (K21.9) Active confirmed Problem Insomnia (054421000) Insomnia (G47.00) Active confirmed Problem Mood disorder (76147019) Mood disorder (F39) Active confirmed BPD included in differential Problem Anxiety (51536030) Anxiety (F41.9) Active confirmed Problem Generalized anxiety disorder (49181009) KAYA (generalized anxiety disorder) (F41.1) Active confirmed Problem Panic disorder (680749304) Panic disorder (F41.0) Active confirmed Problem Major depressive disorder (841017040) MDD (major depressive disorder) (F32.9) Active confirmed Problem Mixed bipolar I disorder (44591349) Bipolar 1 disorder, mixed (F31.60) Active confirmed Problem Gallstones (268222705) Gallstones (K80.20) Active confirmed Problem Fatty liver (892887593) Fatty liver disease, nonalcoholic (K76.0) Active confirmed Problem Cardiac arrhythmia (053288796) Irregular heart rate (I49.9) Active confirmed Vital Signs Heart Rate 88 /min 12/02/2024 Respiratory Rate 16 /min 12/02/2024 Oximetry 98 % 12/02/2024 Blood pressure diastolic 78 mm Hg 12/02/2024 Height 5 ft 4 in in 12/02/2024 Blood pressure systolic 124 mm Hg 12/02/2024 Weight 204 lb 8 oz lbs 12/02/2024 BMI 35.1 kg/m2 12/02/2024 Encounters Encounter Location Date Provider Diagnosis [address] [address] 02/13/2024 Jessica Tash Mood disorder [facility] [address] [address] 03/11/2024 Jessica Tash Mood disorder [address] [address] 04/08/2024 Aissatou Short Mood disorder [address] [place] [address] 10/01/2024 Vanesa Tracy [facility] [address] [facility] [address] 10/14/2024 Vanesa Tracy [facility] [address] [place] [address] 03/29/2024 Aissatou Paula [facility] [address] [place] [address] 03/29/2024 Aissatou Paula [facility] [address] [place] [address] 09/25/2024 Jessica Tash [address] [place] [address] 09/30/2024 Vanesa Tracy [address] [place] [address] 09/30/2024 Vanesa Tracy GERD (gastroesophageal reflux disease) K21.9 ; Abdominal pain R10.9 and Fatty liver disease, nonalcoholic K76.[address] [place] [address] 12/02/2024 Vanesa Tracy GERD (gastroesophageal reflux disease) K21.9 ; Abdominal pain R10.9 and Fatty liver disease, nonalcoholic K76.[address] [place] [address] 01/11/2024 Celine Quintana Depressed F32.9 ; Anxiety F41.9 and Mood disorder F39 [facility] [address] [place] [address] 02/13/2024 Jessica Tash KAYA (generalized anxiety disorder) F41.1 ; MDD (major depressive disorder) F32.9 and Mood disorder F39 [facility] [address] [address] 03/11/2024 Jessica Tash Anxiety F41.9 ; Bipolar 1 disorder, mixed F31.60 and MDD (major depressive disorder) F32.9 [facility] [address] [address] 08/06/2024 Jessica Tash Mood disorder F39 ; Insomnia G47.00 and Panic disorder F41.0 [facility] [address] [place] [address] 10/28/2024 Jessica Tash Insomnia G47.00 ; Mood disorder F39 and KAYA (generalized anxiety disorder) F41.1 [facility] [address] [place] [address] 04/08/2024 Jessica Tash Mood disorder F39 [facility] [address] [place] [address] 04/10/2024 Elena Jerome Mood disorder F39 [place] [address] [place] [address] 04/29/2024 Elena Jerome Mood disorder F39 and Anxiety F41.9 [facility] [address] [place] [address] 05/09/2024 Elena Jerome Mood disorder F39 [address] [place] [address] 03/11/2024 Elena Jerome Bipolar 1 disorder, mixed F31.60 [facility] [address] [place] [address] 03/18/2024 Elena Jerome Mood disorder F39 [place] [address] [place] [address] 03/25/2024 Elena Jerome Mood disorder F39 [place] [address] [place] [address] 04/01/2024 Elena Jerome Mood disorder F39 [address] [place] [address] 02/16/2024 Elena Jerome Anxiety F41.9 and MDD (major depressive disorder) F32.[address] [place] [address] 02/23/2024 Elena Jerome Anxiety F41.9 and MDD (major depressive disorder) F32.[address] [place] [address] 03/01/2024 Elena Jerome Anxiety F41.9 and MDD (major depressive disorder) F32.9 Assessments Encounter Date Diagnosis (ICD Code) Assessment Notes Treatment Notes Treatment Clinical Notes Section Notes 01/11/2024 Depressed (ICD-10 - F32.9) Will refill FLuoxetine to 20 mg daily to aid depression and anxiety. PHQ-9 score is 21 today; was 13 at last visit. Pt denies SI/HI. Continues to talk to therapist weekly. Pt reports that she stopped taking medications in August. WIll restart meds at this time 02/13/2024 KAYA (generalized anxiety disorder) (ICD-10 - F41.1) Begin propranolol. Take as prescribed. Reviewed purpose (decrease anxiety and panic attacks), benefits, and risks - including low pulse rate, low blood pressure, sexual dysfunction, wheezing/asthma attack, weight gain, increased blood sugar, and sedation. Call for problems with medication, side effects or need for dosage change 02/13/2024 MDD (major depressive disorder) (ICD-10 - F32.9) Antidepressant education - reviewed side effects which may include increased risk of suicide, anxiety, sleep disturbance, nausea, dry mouth, increased bruising, sexual dysfunction, harrison, wt gain, and serotonin syndrome. Need to notify provider if planning or experiencing . Call for problems with medication, side effects or need for dosage change Increase Prozac to 40 mg once daily 02/13/2024 Mood disorder (ICD-10 - F39) 02/16/2024 Anxiety (ICD-10 - F41.9) 02/23/2024 Anxiety (ICD-10 - F41.9) 03/01/2024 Anxiety (ICD-10 - F41.9) 03/11/2024 Bipolar 1 disorder, mixed (ICD-10 - F31.60) Continue Lamotrigine as prescribed. Reviewed purpose (mood stability, reduce depression, and help with irritability), benefits, and risks - including sedation, nausea, rash - benign or serious. A serious rash could cause shedding of all skin and even become fatal. Stop taking medication immediately if a rash occurs and seek emergency care. Notify our office as well. If you ever miss 4 or more consecutive days of taking this medication, please let the office know. The prescriber may need to restart this medication at 25 mg daily and titrate up as tolerated. Call for problems with medication, side effects or need for dosage change. 03/11/2024 Mood disorder (ICD-10 - F39) 03/11/2024 Bipolar 1 disorder, mixed (ICD-10 - F31.60) 03/18/2024 Mood disorder (ICD-10 - F39) 03/25/2024 Mood disorder (ICD-10 - F39) 04/01/2024 Mood disorder (ICD-10 - F39) 04/08/2024 Mood disorder (ICD-10 - F39) Begin Lamotrigine as prescribed. Reviewed purpose (mood stability, reduce depression, and help with irritability), benefits, and risks - including sedation, nausea, rash - benign or serious. A serious rash could cause shedding of all skin and even become fatal. Stop taking medication immediately if a rash occurs and seek emergency care. Notify our office as well. If you ever miss 4 or more consecutive days of taking this medication, please let the office know. The prescriber may need to restart this medication at 25 mg daily and titrate up as tolerated. Call for problems with medication, side effects or need for dosage change. Continue Prozac. Antidepressant education - reviewed side effects which may include increased risk of suicide, anxiety, sleep disturbance, nausea, dry mouth, increased bruising, sexual dysfunction, harrison, wt gain, and serotonin syndrome. Need to notify provider if planning or experiencing . Call for problems with medication, side effects or need for dosage change. Continue propranolol. Take as prescribed. Reviewed purpose (decrease anxiety and panic attacks), benefits, and risks - including low pulse rate, low blood pressure, sexual dysfunction, wheezing/asthma attack, weight gain, increased blood sugar, and sedation. Call for problems with medication, side effects or need for dosage change. 04/08/2024 Mood disorder (ICD-10 - F39) 04/10/2024 Mood disorder (ICD-10 - F39) 04/29/2024 Mood disorder (ICD-10 - F39) 05/09/2024 Mood disorder (ICD-10 - F39) 08/06/2024 Insomnia (ICD-10 - G47.00) 08/06/2024 Mood disorder (ICD-10 - F39) BPD included in differential Start Lamotrigine as prescribed. Reviewed purpose (mood stability, reduce depression, and help with irritability), benefits, and risks - including sedation, nausea, rash - benign or serious. A serious rash could cause shedding of all skin and even become fatal. Stop taking medication immediately if a rash occurs and seek emergency care. Notify our office as well. If you ever miss 4 or more consecutive days of taking this medication, please let the office know. The prescriber may need to restart this medication at 25 mg daily and titrate up as tolerated. Call for problems with medication, side effects or need for dosage change. Start Sertraline. Reviewed side effects which may include increased risk of suicide, anxiety, sleep disturbance, nausea, dry mouth, increased bruising, sexual dysfunction, harrison, wt gain, and serotonin syndrome. Need to notify provider if planning or experiencing . Call for problems with medication, side effects or need for dosage change. 03/11/2024 Anxiety (ICD-10 - F41.9) Continue propranolol. Take as prescribed. Reviewed purpose (decrease anxiety and panic attacks), benefits, and risks - including low pulse rate, low blood pressure, sexual dysfunction, wheezing/asthma attack, weight gain, increased blood sugar, and sedation. Call for problems with medication, side effects or need for dosage change. 09/30/2024 GERD (gastroesophage al reflux disease) (ICD-10 - K21.9) 09/30/2024 Abdominal pain (ICD-10 - R10.9) 10/28/2024 Insomnia (ICD-10 - G47.00) 12/02/2024 GERD (gastroesophage al reflux disease) (ICD-10 - K21.9) 12/02/2024 Abdominal pain (ICD-10 - R10.9) 10/28/2024 Mood disorder (ICD-10 - F39) BPD included in differential Start Aripiprazole. Take as prescribed. Reviewed purpose (mood stability), benefits, and risks - low blood pressure, metabolic syndrome with high cholesterol or high blood sugars, change in cardiac conduction, nausea, vomiting, temporary or permanent movement disorders, and akathisia. For females: explained that no medication can be guaranteed to be 100% safe for baby or mother. Call for problems with medication, side effects or need for dosage change. 10/28/2024 KAYA (generalized anxiety disorder) (ICD-10 - F41.1) Start buspirone. Take as prescribed. Reviewed purpose - decrease anxiety, benefits, and risks - dizziness, headache, nervousness, sedation, excitement, nausea, and restlessness. Call for problems with medication, side effects or need for dosage change. 09/30/2024 Fatty liver disease, nonalcoholic (ICD-10 - K76.0) 03/11/2024 MDD (major depressive disorder) (ICD-10 - F32.9) Continue Prozac. Antidepressant education - reviewed side effects which may include increased risk of suicide, anxiety, sleep disturbance, nausea, dry mouth, increased bruising, sexual dysfunction, harrison, wt gain, and serotonin syndrome. Need to notify provider if planning or experiencing . Call for problems with medication, side effects or need for dosage change. 08/06/2024 Panic disorder (ICD-10 - F41.0) Start Quetiapine Take as prescribed. Reviewed purpose (mood stability), benefits, and risks - low blood pressure, metabolic syndrome with high cholesterol or high blood sugars, change in cardiac conduction, nausea, vomiting, temporary or permanent movement disorders, and akathisia. Explained that no medication can be guaranteed to be 100% safe for baby or mother. Call for problems with medication, side effects or need for dosage change. 04/29/2024 Anxiety (ICD-10 - F41.9) 03/01/2024 MDD (major depressive disorder) (ICD-10 - F32.9) 02/23/2024 MDD (major depressive disorder) (ICD-10 - F32.9) 02/16/2024 MDD (major depressive disorder) (ICD-10 - F32.9) 02/13/2024 Mood disorder (ICD-10 - F39) Continue Lamotrigine as prescribed. Reviewed purpose (mood stability, reduce depression, and help with irritability), benefits, and risks - including sedation, nausea, rash - benign or serious. A serious rash could cause shedding of all skin and even become fatal. Stop taking medication immediately if a rash occurs and seek emergency care. Notify our office as well. If you ever miss 4 or more consecutive days of taking this medication, please let the office know. The prescriber may need to restart this medication at 25 mg daily and titrate up as tolerated. Call for problems with medication, side effects or need for dosage change. 01/11/2024 Anxiety (ICD-10 - F41.9) Will resume Hydroxyzine BID PRN anxiety; pt has not been taking meds since August 2023; encouraged pt to continue to talk with therapist. Pt denies SI/HI 01/11/2024 Mood disorder (ICD-10 - F39) Pt reports that she was tolerating the Lamictal well before stopping the medication 4 months ago;. Will restart medications at this time. Pt denies SI/HI 12/02/2024 Fatty liver disease, nonalcoholic (ICD-10 - K76.0) 03/11/2024 Other May self-administer medications or be administered own oral medications per [facility] protocols. Provided informed consent with understanding of side effects, adverse effects, risks and benefits as well as alternative treatments as previously discussed and with the above recommended medications & other aspects of the treatment program. Agrees to return sooner if symptoms worsen or suicidal or homicidal ideations occur. Plan: -Increase Lamictal to 150 mg once daily -Continue Prozac 40 mg once daily -Continue Propranolol 10 mg 1-2 tabs daily PRN -Follow up: 2 weeks [] Hard Rx handed to patient [] Rx phoned into pharmacy [x] Rx faxed/e-prescribed into pharmacy [x] PDMP Reviewed [] [facility] Reviewed Encouraged by Jessica ARRINGTONHNP-BC to: [] consider utilizing therapist/counselor/so cial worker/psychologist, referral given [x] continue with therapist/counselor/so cial worker/psychologist Psychoeducation: -Treatment options discussed in detail with patient/guardian verbalizing understanding of treatment rationales. -Side effects and benefits of all medications prescribed discussed at length between psychiatric prescribing provider and patient/guardian along with the risks associated of vpqd-ia-dham interactions, including but not limited to prescription medications, OTC medications, vitamins, minerals and herbal supplements. -Patient/Guardian and provider dialogue showcased verbalized understanding from patient on rationales of medication risk vs benefits. -Information with neurobiology of presenting neurotransmitter disorder, mood stability, sleep hygiene and 7-8 hours of uninterrupted sleep per night with wakeful and refreshed awakening and day long alertness discussed. -Reduction of stress and anxiety to aid in focus and concentration discussed, again, with patient/guardian physically nodding, voicing understanding, and engaged in treatment plan with Jessica ARRINGTONHNP-BC. -Perceiving complete understanding of rationale by patient/guardian and willingness to adhere to formulated plan of care by prescriber with patient/guardian buy-in, willingness to participate actively in plan of care and willing to take charge of own care. -Although geared for female patients, all patients/guardians are informed by prescribing provider of risks of medications that could potentially be taken by female/women within their [place] of influence and that women who use medicine during have a higher chance of having a baby with defects. -Patient/Guardian denies being and/or knowing of women who are at present and denies wanting to become in the foreseeable future, 0-6 months from now. -Patient/Guardian again informed of the risk of pharmaceutical medications consumed during and how there are potential negative effects on the developing fetus. -Patient/Guardian verbalizes understanding of rationale and physically nods head in agreement that if a should occur, to consult with provider, RIPRAP MAN and/or Nurse Log Getter to determine if prescribed medications should or should not be continued. -Instructions regarding both the medical/pharmacologica l and non-pharmacologic aspects of the treatments employed were given, and the patient/guardian seemed to understand this. Risks and benefits of treatment, and of non-treatment, were also discussed. The patient/guardian understands the more frequent side effects associated with the medications. -The use of psychotherapy was addressed today and will continue on an as needed basis for the foreseeable future. The choice is, of course, ultimately left to the patient/guardian. -Patient/Guardian was encouraged to make a follow-up appointment for the next visit. -Additional treatment was discussed and has been addressed on an ongoing basis within the context of this patient's illness, resources, progress, and other appropriate factors. Being compliant with a regular exercise routine, consistent medication use, ongoing psychotherapy, eating and sleeping well, as well as the importance of handling stress, was discussed. 10/28/2024 Other May self-administer medications or be administered own oral medications per [facility] protocols. Provided informed consent with understanding of side effects, adverse effects, risks and benefits as well as alternative treatments as previously discussed and with the above recommended medications & other aspects of the treatment program. Agrees to return sooner if symptoms worsen or suicidal or homicidal ideations occur. Medication Hx: -Lamotrigine -Sertraline -Quetiapine -Propranolol -Prozac -Hydroxyzine (doesn't work) Plan: -Start Abilify 5 mg QHS -Start Buspirone 5 mg BID *NO SSRI d/t Naproxen BID Treatment Plan: -Consider Wellbutrin once mood is stable -Pt has hx of poor medication adherence, starting antipsychotic to help stabilize mood vs mood stabilizer because it can be restarted easier and increased faster. -Follow up: 2 weeks [] Hard Rx handed to patient [] Rx phoned into pharmacy [x] Rx faxed/e-prescribed into pharmacy [] PDMP Reviewed [] [facility] Reviewed Encouraged by Jessica Bianchi [facility]- to: [x] consider utilizing therapist/counselor/so cial worker/psychologist, referral given [] continue with therapist/counselor/so cial worker/psychologist Psychoeducation: -Treatment options discussed in detail with patient/guardian verbalizing understanding of treatment rationales. -Side effects and benefits of all medications prescribed discussed at length between psychiatric prescribing provider and patient/guardian along with the risks associated of iemn-qp-avzf interactions, including but not limited to prescription medications, OTC medications, vitamins, minerals and herbal supplements. -Patient/Guardian and provider dialogue showcased verbalized understanding from patient on rationales of medication risk vs benefits. -Information with neurobiology of presenting neurotransmitter disorder, mood stability, sleep hygiene and 7-8 hours of uninterrupted sleep per night with wakeful and refreshed awakening and day long alertness discussed. -Reduction of stress and anxiety to aid in focus and concentration discussed, again, with patient/guardian physically nodding, voicing understanding, and engaged in treatment plan with Jessica Bianchi [facility]-. -Perceiving complete understanding of rationale by patient/guardian and willingness to adhere to formulated plan of care by prescriber with patient/guardian buy-in, willingness to participate actively in plan of care and willing to take charge of own care. -Although geared for female patients, all patients/guardians are informed by prescribing provider of risks of medications that could potentially be taken by female/women within their [place] of influence and that women who use medicine during have a higher chance of having a baby with defects. -Patient/Guardian denies being and/or knowing of women who are at present and denies wanting to become in the foreseeable future, 0-6 months from now. -Patient/Guardian again informed of the risk of pharmaceutical medications consumed during and how there are potential negative effects on the developing fetus. -Patient/Guardian verbalizes understanding of rationale and physically nods head in agreement that if a should occur, to consult with provider, RIPRAP MAN and/or Nurse Log Getter to determine if prescribed medications should or should not be continued. -Instructions regarding both the medical/pharmacologica l and non-pharmacologic aspects of the treatments employed were given, and the patient/guardian seemed to understand this. Risks and benefits of treatment, and of non-treatment, were also discussed. The patient/guardian understands the more frequent side effects associated with the medications. -The use of psychotherapy was addressed today and will continue on an as needed basis for the foreseeable future. The choice is, of course, ultimately left to the patient/guardian. -Patient/Guardian was encouraged to make a follow-up appointment for the next visit. -Additional treatment was discussed and has been addressed on an ongoing basis within the context of this patient's illness, resources, progress, and other appropriate factors. Being compliant with a regular exercise routine, consistent medication use, ongoing psychotherapy, eating and sleeping well, as well as the importance of handling stress, was discussed. 08/06/2024 Other May self-administer medications or be administered own oral medications per [facility] protocols. Provided informed consent with understanding of side effects, adverse effects, risks and benefits as well as alternative treatments as previously discussed and with the above recommended medications & other aspects of the treatment program. Agrees to return sooner if symptoms worsen or suicidal or homicidal ideations occur. Plan: -Restart Lamotrigine 25 mg once daily -Start Sertraline 25 mg once daily -Start Quetiapine 25 mg PRN for anxiety -Follow up: 2 weeks [] Hard Rx handed to patient [] Rx phoned into pharmacy [x] Rx faxed/e-prescribed into pharmacy [x] PDMP Reviewed [] [employer] Reviewed Encouraged by Jessica Bianchi [facility] to: [] consider utilizing therapist/counselor/so cial worker/psychologist, referral given [x] continue with therapist/counselor/so cial worker/psychologist Psychoeducation: -Treatment options discussed in detail with patient/guardian verbalizing understanding of treatment rationales. -Side effects and benefits of all medications prescribed discussed at length between psychiatric prescribing provider and patient/guardian along with the risks associated of cwqf-sq-ynec interactions, including but not limited to prescription medications, OTC medications, vitamins, minerals and herbal supplements. -Patient/Guardian and provider dialogue showcased verbalized understanding from patient on rationales of medication risk vs benefits. -Information with neurobiology of presenting neurotransmitter disorder, mood stability, sleep hygiene and 7-8 hours of uninterrupted sleep per night with wakeful and refreshed awakening and day long alertness discussed. -Reduction of stress and anxiety to aid in focus and concentration discussed, again, with patient/guardian physically nodding, voicing understanding, and engaged in treatment plan with Jessica Bianchi [facility]. -Perceiving complete understanding of rationale by patient/guardian and willingness to adhere to formulated plan of care by prescriber with patient/guardian buy-in, willingness to participate actively in plan of care and willing to take charge of own care. -Although geared for female patients, all patients/guardians are informed by prescribing provider of risks of medications that could potentially be taken by female/women within their [place] of influence and that women who use medicine during have a higher chance of having a baby with defects. -Patient/Guardian denies being and/or knowing of women who are at present and denies wanting to become in the foreseeable future, 0-6 months from now. -Patient/Guardian again informed of the risk of pharmaceutical medications consumed during and how there are potential negative effects on the developing fetus. -Patient/Guardian verbalizes understanding of rationale and physically nods head in agreement that if a should occur, to consult with provider, RIPRAP MAN and/or Nurse Log Getter to determine if prescribed medications should or should not be continued. -Instructions regarding both the medical/pharmacologica l and non-pharmacologic aspects of the treatments employed were given, and the patient/guardian seemed to understand this. Risks and benefits of treatment, and of non-treatment, were also discussed. The patient/guardian understands the more frequent side effects associated with the medications. -The use of psychotherapy was addressed today and will continue on an as needed basis for the foreseeable future. The choice is, of course, ultimately left to the patient/guardian. -Patient/Guardian was encouraged to make a follow-up appointment for the next visit. -Additional treatment was discussed and has been addressed on an ongoing basis within the context of this patient's illness, resources, progress, and other appropriate factors. Being compliant with a regular exercise routine, consistent medication use, ongoing psychotherapy, eating and sleeping well, as well as the importance of handling stress, was discussed. -Hydroxyzine makes her too tired and doesn't help with anxiety -Propranolol stopped working and reports it didn't help her anxiety anyway -Buspirone caused hallucinatio ns -Lexapro caused hives 01/11/2024 Other Discussed treatment planDiscussed sleep hygiene and caffeine intakeReturn to clinic 4 weeksObtain lab work at next visit Encouraged counselingDiscussed treatment plan; patient is agreeable and accepting of treatment plan. Patient denies further questions or concerns at this time. The Patient/Guardian asked appropriate questions, appeared to understand the answers, and decided to accept the treatment and continue being followed.The Patient/Guardian is aware of the need to contact the office or return for an earlier appointment if any problems or concerns arise. May also contact the 24-hour crisis hotline ([facility]), refer to the closest emergency room or call 911 if new symptoms arise of existing symptoms worsen; the Patient/Guardian is aware that this would apply to symptoms such as: suicidal ideation, homicidal ideation, high risk behaviors, manic symptoms, psychotic symptoms, physical symptoms, or any other symptoms that may be dangerous to self or others. Patient made aware that this provider will be leaving [facility] as of [facility]24 and he will be transitioned to a new provider for his next appointment. 04/08/2024 Other May self-administer medications or be administered own oral medications per [facility] protocols. Provided informed consent with understanding of side effects, adverse effects, risks and benefits as well as alternative treatments as previously discussed and with the above recommended medications & other aspects of the treatment program. Agrees to return sooner if symptoms worsen or suicidal or homicidal ideations occur. Plan: -Decrease Lamictal to 100 mg once daily d/t increased headaches upon increasing dose -Continue Prozac 40 mg once daily -Continue Propranolol 10 mg 1-2 tabs PRN -Follow up: 2 weeks [] Hard Rx handed to patient [] Rx phoned into pharmacy [x] Rx faxed/e-prescribed into pharmacy [x] PDMP Reviewed [] [facility] Reviewed Encouraged by Jessica Bianchi [facility] to: [] consider utilizing therapist/counselor/so cial worker/psychologist, referral given [x] continue with therapist/counselor/so cial worker/psychologist Psychoeducation: -Treatment options discussed in detail with patient/guardian verbalizing understanding of treatment rationales. -Side effects and benefits of all medications prescribed discussed at length between psychiatric prescribing provider and patient/guardian along with the risks associated of udef-np-jfqf interactions, including but not limited to prescription medications, OTC medications, vitamins, minerals and herbal supplements. -Patient/Guardian and provider dialogue showcased verbalized understanding from patient on rationales of medication risk vs benefits. -Information with neurobiology of presenting neurotransmitter disorder, mood stability, sleep hygiene and 7-8 hours of uninterrupted sleep per night with wakeful and refreshed awakening and day long alertness discussed. -Reduction of stress and anxiety to aid in focus and concentration discussed, again, with patient/guardian physically nodding, voicing understanding, and engaged in treatment plan with Jessica Bianchi [facility]. -Perceiving complete understanding of rationale by patient/guardian and willingness to adhere to formulated plan of care by prescriber with patient/guardian buy-in, willingness to participate actively in plan of care and willing to take charge of own care. -Although geared for female patients, all patients/guardians are informed by prescribing provider of risks of medications that could potentially be taken by female/women within their [place] influence and that women who use medicine during have a higher chance of having a baby with defects. -Patient/Guardian denies being and/or knowing of women who are at present and denies wanting to become in the foreseeable future, 0-6 months from now. -Patient/Guardian again informed of the risk of pharmaceutical medications consumed during and how there are potential negative effects on the developing fetus. -Patient/Guardian verbalizes understanding of rationale and physically nods head in agreement that if a should occur, to consult with provider, RIPRAP MAN and/or Nurse Log Getter to determine if prescribed medications should or should not be continued. -Instructions regarding both the medical/pharmacologica l and non-pharmacologic aspects of the treatments employed were given, and the patient/guardian seemed to understand this. Risks and benefits of treatment, and of non-treatment, were also discussed. The patient/guardian understands the more frequent side effects associated with the medications. -The use of psychotherapy was addressed today and will continue on an as needed basis for the foreseeable future. The choice is, of course, ultimately left to the patient/guardian. -Patient/Guardian was encouraged to make a follow-up appointment for the next visit. -Additional treatment was discussed and has been addressed on an ongoing basis within the context of this patient's illness, resources, progress, and other appropriate factors. Being compliant with a regular exercise routine, consistent medication use, ongoing psychotherapy, eating and sleeping well, as well as the importance of handling stress, was discussed. 02/13/2024 Other May self-administer medications or be administered own oral medications per [facility] protocols. Provided informed consent with understanding of side effects, adverse effects, risks and benefits as well as alternative treatments as previously discussed and with the above recommended medications & other aspects of the treatment program. Agrees to return sooner if symptoms worsen or suicidal or homicidal ideations occur. Plan: -Continue Lamictal 100 mg once daily -Increase Prozac to 40 mg once daily -Discontinue Hydroxyzine due to increased sedation -Start Propranolol 10 mg 1-2 tabs daily PRN for anxiety -Follow up: 2-3 weeks [] Hard Rx handed to patient [] Rx phoned into pharmacy [x] Rx faxed/e-prescribed into pharmacy [x] PDMP Reviewed [] [facility] Reviewed Encouraged by Jessica Bianchi [facility] to: [] consider utilizing therapist/counselor/so cial worker/psychologist, referral given [] continue with therapist/counselor/so cial worker/psychologist Psychoeducation: -Treatment options discussed in detail with patient/guardian verbalizing understanding of treatment rationales. -Side effects and benefits of all medications prescribed discussed at length between psychiatric prescribing provider and patient/guardian along with the risks associated of faof-ib-nunb interactions, including but not limited to prescription medications, OTC medications, vitamins, minerals and herbal supplements. -Patient/Guardian and provider dialogue showcased verbalized understanding from patient on rationales of medication risk vs benefits. -Information with neurobiology of presenting neurotransmitter disorder, mood stability, sleep hygiene and 7-8 hours of uninterrupted sleep per night with wakeful and refreshed awakening and day long alertness discussed. -Reduction of stress and anxiety to aid in focus and concentration discussed, again, with patient/guardian physically nodding, voicing understanding, and engaged in treatment plan with Jessica Bianchi [facility]. -Perceiving complete understanding of rationale by patient/guardian and willingness to adhere to formulated plan of care by prescriber with patient/guardian buy-in, willingness to participate actively in plan of care and willing to take charge of own care. -Although geared for female patients, all patients/guardians are informed by prescribing provider of risks of medications that could potentially be taken by female/women within their [place] influence and that women who use medicine during have a higher chance of having a baby with defects. -Patient/Guardian denies being and/or knowing of women who are at present and denies wanting to become in the foreseeable future, 0-6 months from now. -Patient/Guardian again informed of the risk of pharmaceutical medications consumed during and how there are potential negative effects on the developing fetus. -Patient/Guardian verbalizes understanding of rationale and physically nods head in agreement that if a should occur, to consult with provider, RIPRAP MAN and/or Nurse Log Getter to determine if prescribed medications should or should not be continued. -Instructions regarding both the medical/pharmacologica l and non-pharmacologic aspects of the treatments employed were given, and the patient/guardian seemed to understand this. Risks and benefits of treatment, and of non-treatment, were also discussed. The patient/guardian understands the more frequent side effects associated with the medications. -The use of psychotherapy was addressed today and will continue on an as needed basis for the foreseeable future. The choice is, of course, ultimately left to the patient/guardian. -Patient/Guardian was encouraged to make a follow-up appointment for the next visit. -Additional treatment was discussed and has been addressed on an ongoing basis within the context of this patient's illness, resources, progress, and other appropriate factors. Being compliant with a regular exercise routine, consistent medication use, ongoing psychotherapy, eating and sleeping well, as well as the importance of handling stress, was discussed. Antidepressant education - reviewed side effects which may include increased risk of suicide, anxiety, sleep disturbance, nausea, dry mouth, increased bruising, sexual dysfunction, harrison, wt gain, and serotonin syndrome. Need to notify provider if planning or experiencing . Call for problems with medication, side effects or need for dosage change Increase Prozac to 40 mg once daily Plan Of Treatment No Information Insurance Providers Payer Name Payer Address Payer Phone Subscriber Number Group Number Insured Name Patient Relationship to Insured Coverage Start Date Coverage End Date [facility] Attn Claims Department [address] [place] [id number] Krista Mustafa Self - patient is the insured 2 [employer] [address] [place] [phone] [id number] Krista Mustafa Self - patient is the insured 1 [id number] Att[facility] Department [address] [place] [phone] [id number] Krista Mustafa Self - patient is the insured 4 [employer] [facility] Attn Claims Department [address] [place] [id number] Krista Mustafa Self - patient is the insured 4 Medical (General) History Medical History History ICD Code asthma IBS vs Crohns Migraines non-alcoholic fatty liver disease Surgical History Surgery Date(Month/Year) Tonsillectomy 06/28/2011 Tonsillectomy 06/2011 C section 2020 06/17/2020 Hospitalization History Reason Date(Month/Year) Flu during 2020
[2024-12-18 12:16] LABS: Alanine Aminotransferase 15 U/L (6-35); Albumin Level 4.3 g/dL (3.5-5.1); Alkaline Phosphatase 65 U/L (38-126); Amylase 80 U/L (30-110); Aspartate Amino Transferase 24 U/L (14-36); Bilirubin,Total 0.5 mg/dL (0.2-1.3); Lipase 67 U/L (23-300); Total Protein 7.0 g/dL (6.3-8.2)
== END 2024-12-18 11:13 | disposition home or self-care (01) ==
PROVIDERS: Visit Provider Surgery
DX: K81.9 Cholecystitis, unspecified (principal)
CPT/HCPCS: 36415; 80076; 82150; 83690

== ENCOUNTER 2024-12-25 02:19 | Day surgery (SDC) | payer OTHER, SELFPAY ==
--- OUTSIDE RECORDS SUMMARY | 2024-09-30 06:20 | XMS_ITS ---
Author Organization [facility] Address [address] [place] [address] Care Team Providers Care Sling Operator Name Role Phone Vanesa Tracy Primary Care Provider Jessica Bianchi Unavailable [phone] REASON FOR VISIT lab Social History Sex Assigned At : Social History Observation Description Sex Assigned At Female Encounters Encounter Location Date Provider Diagnosis [address] [address] 09/30/2024 Vanesa Tracy Plan Of Treatment No Information Progress Notes * Petrona MUSTAFAOB:[birth year] (29 yo F)Acc No.[id number]:09/30/2024 UNLOCKED PROGRESS NOTE Patient: Krista GARNICA Provider: BRADLEY Hurd :1995 A ge:28 Y S ex:Female Date:09/30/2024 Address:[address], [address], [place], [place] Subjective: * Chief Complaints: * 1 . Lab. * Medical History: Objective: * Vitals: Assessment: Plan: * Treatment: * * Electronic signature of Anabell Tracy on 12/25/2024 at 02:21 AM CDT Sign off status: Pending * Provider: BRADLEY Hurd Date: 0 09/30/2024 Generated for Soraya zamorano/Antonette/Jlitting on: 0 12/25/2024 02:21 AM CDT
[2024-12-17 14:37] VITALS: BMI 34.7
--- NOTE | 2024-12-17 14:39 | PC.NURSE ---
Report to the Outpatient Waiting Room, entrance under the green pavilion located off [facility], at time _1pm_ on date _[id number]_. Planned Procedure Time: _3pm_.? Time changes happen often and if your time is changed the preop area will call you the afternoon before. - You and your visitor will be asked to self-screen and do not enter if you have any COVID symptoms. Please call surgeon if you need to reschedule. - A mask is optional within the hospital at this time. Patients may have clear liquids (water, carbonated beverages, clear teas, apple juice) until 3 hours prior to surgery with a maximum of 20 ounces. - No food from midnight until time of surgery and no smoking, or chewing tobacco (or any form of nicotine). No chewing gum, candy or mints. Take only the following medications with a SIP of water on the morning of surgery: __Zofran if needed DO NOT STOP ANY OF YOUR OTHER PRESCRIPTION MEDICATIONS PRIOR TO SURGERY EXCEPT THE FOLLOWING Hold all vitamins and supplements for 3 days per anesthesiologist. Medications to discontinue per physician Please ask Dr Frey's office if OK to take Naproxen or if should be taking something else. Date to take last dose Please no make-up, nail spanish, hairspray, perfume, deodorant, or body powder the day of surgery.? No jewelry (including any body piercings) or valuables the day of surgery, leave them at home.? Please take a shower or bath the night before, or the morning of, surgery with an antibacterial soap.? Wear comfortable, loose fitting clothing.? - Jewelry must be removed prior to entering the operating room.? Rings and piercings that are not removed may be cut off. - The hospital will not accept responsibility for valuables.? - Please leave all valuables, including medications, at home the day of surgery. If you are going home after surgery, a licensed truck driver supervisor must drive you home.? - NO public transportation without another adult if you receive anesthesia. - We recommend that an adult stay with you for 24 hours following discharge. - We also recommend that you do not drive, make important decision, drink alcoholic beverages, or take any drugs that were not prescribed by your health care provider for at least 24 hours after your discharge time. Follow any additional instructions given to you from your surgeon. Telephone instructions given to ___Krista__and asked if any additional questions and then verbalized understanding. Patient advised to call surgeon office or pre surgery nurse liaison [phone] if any additional questions.
[2024-12-25] VITALS (11 sets, daily range): BP systolic 104–129; BP diastolic 51–72; PULSE 63–102; RESP 12–18; TEMP 36.2–36.9; O2SAT 91–100
--- OUTSIDE RECORDS SUMMARY | 2024-12-25 02:22 | XMS_ITS | Patient Health Record ---
Author Organization [facility] Address [address] [place] [address] Care Team Providers Care Rug Setter Velvet Name Role Phone Vanesa Tracy Primary Care Provider Jessica Bianchi Unavailable [phone] Celine Quintana Unavailable [phone] Aissatou Paula Unavailable [phone] Elena Jerome Unavailable [phone] Allergies Allergen (clinical drug ingredient) Drug/Non Drug Allergy documented on EMR Reaction Allergy Type Onset Date Status escitalopram Lexapro (uncoded) anaphylaxis Allergy Active Substance with sulfonamide structure and antibacterial mechanism of action (substance) sulfa (uncoded) anaphylaxis Allergy Active doxycycline Doxycycline anaphylaxis Drug Allergy A ctive Results Component Value Reference Range Notes Amylase, Serum Reviewed date:10/03/2024 08:21:14 AM Interpretation: Performing Lab:[facility], Phone - [phone], Director - [facility] Notes/Report: Amylase 58 31-110 U/L Lipase, Serum Reviewed date:11/19/2024 03:09:20 PM Interpretation: Performing Lab:[facility] [address] [place] [address], Phone - [phone], Director - PhDChildren[facility]S Island [facility]itarium[facility]ich[facility] Notes/Report: Lipase 21 14-72 U/L CBC With Differential/Platel et* Reviewed date:10/03/2024 08:20:50 AM Interpretation: Performing Lab:[facility] [address] [facility], Phone - [phone], Director - [facility] Notes/Report: WBC 6.9 3.4-10.8 x10E3/uL RBC 5.20 [...] Panel* Reviewed date:10/03/2024 08:20:58 AM Interpretation: Performing Lab:[facility] [address] [facility], Phone - [phone], Director - [facility] Notes/Report: Cholesterol, Total 239 100-199 mg/dL Triglycerides 150 0-149 mg/dL HDL Cholesterol 47 >39 mg/dL VLDL Cholesterol Chilo 27 5-40 mg/dL LDL Chol Calc ([facility]) 165 0-99 mg/dL TSH reflex to T4F Reviewed date:10/03/2024 08:21:23 AM Interpretation: Performing Lab:[facility] [place] [id number] [facility], Phone - [phone], Director - [facility] Notes/Report: TSH 1.170 0.450-4.500 uIU/mL CMP 14 Comprehensive Metabol ic Panel* Reviewed date:10/03/2024 08:20:42 AM Interpretation: Performing Lab:[facility] [place] [id number] [facility], Phone - [phone], Director - PhDRickeyonnai Notes/Report: Glucose 88 70-99 [...] A1c Reviewed date:10/03/2024 08:21:07 AM Interpretation: Performing Lab:[facility] [place], [address] [facility], Phone - [phone], Director - Rickeyonnai Notes/Report: Hemoglobin A1c 5.2 Reference Range: [place] Diabetes [employer] (ADA) Guidelines: <5.7: Decreased risk [...] 9) Diagnosis 2 Gallstones (K80.20) Referral Organization [facility] Referring Provider First Name Vanesa Referring Provider Last Name Demarcus Referring Provider Speciality Psychiatry Referred Provider Specialty General Surg fuentes General Notes Aissatou Basilio RN 2024 01:12:40 PM >Referral and records faxed.Praful RN, Jennifer A 2024 01:35:47 PM >Referral letter mailed to patient. Clinical Notes [facility], [address], [address], [place]. [address], , Referral Priority Routine Reason syncope, wants cardi ology associated with Ari Diagnosis 1 Irregular heart rate (I49.9) Referral Organization [facility] Referring Provider First Name Vanesa Referring Provider Last Name Demarcus Referring Provider Speciality Psychiatry Referred Provider Specialty Cardiology General Notes Aissatou Basilio RN 12/06/2024 02:49:12 PM >Referral and records faxed.Praful RN, Jennifer A 2024 01:34:41 PM >Referral letter mailed to patient. Clinical Notes [facility]Card[facility], [address], [place]. [address], , Referral Priority Routine Medications Medication SIG [...] Status Risk Notes Problem Gastroesophageal reflux disease (668771544) GERD (gastroesophag eal reflux disease) (K21.9) Active confirmed Problem Insomnia (073540636) Insomnia (G47.00) Active confirmed Problem Mood disorder (51346613) Mood disorder (F39) Active confirmed BPD included in differential Problem Anxiety (62735635) Anxiety (F41.9) Active confirmed Problem Generalized anxiety disorder (18236414) KAYA (generalized anxiety disorder) (F41.1) Active confirmed Problem Panic disorder (993676750) Panic disorder (F41.0) Active confirmed Problem Major depressive disorder (117721737) MDD (major depressive disorder) (F32.9) Active confirmed Problem Mixed bipolar I disorder (93335051) Bipolar 1 disorder, mixed (F31.60) Active confirmed Problem Gallstones (473386572) Gallstones (K80.20) Active confirmed Problem Fatty liver (904495799) Fatty liver disease, nonalcoholic (K76.0) Active confirmed Problem Cardiac arrhythmia (694271824) Irregular heart rate (I49.9) Active confirmed Vital Signs Heart Rate 88 /min 12/02/2024 Respiratory Rate 16 /min 12/02/2024 Blood pressure diastolic 78 mm Hg 12/02/2024 Oximetry 98 % 12/02/2024 Height 5 ft 4 in in 12/02/2024 Blood pressure systolic 124 mm Hg 12/02/2024 Weight 204 lb 8 oz lbs 12/02/2024 BMI 35.1 kg/m2 12/02/2024 Encounters Encounter Location Date Provider Diagnosis [address] [place] [address] 09/30/2024 Vanesa Tracy [address] [place] [address] 01/11/2024 Celine Mariano Depressed F32.9 ; Anxiety F41.9 and Mood disorder F39 [address] [place] [address] 02/13/2024 Jessica Bianchi KAYA (generalized anxiety disorder) F41.1 ; MDD (major depressive disorder) F32.9 and Mood disorder F39 [address] [place] [address] 02/16/2024 Elena Jerome Anxiety F41.9 and MDD (major depressive disorder) F32.[address] [place] [address] 02/23/2024 Elena Jerome Anxiety F41.9 and MDD (major depressive disorder) F32.[address] [place] [address] 03/01/2024 Elena Jerome Anxiety F41.9 and MDD (major depressive disorder) F32.9 [facility] [address] [address] 03/11/2024 Jessica Tash Anxiety F41.9 ; Bipolar 1 disorder, mixed F31.60 and MDD (major depressive disorder) F32.[address] [place] [address] 03/11/2024 Elena Jerome Bipolar 1 disorder, mixed F31.60 [place] [address] [place] [address] 03/18/2024 Elena Jerome Mood disorder F39 [place] [address] [place] [address] 03/25/2024 Elena Jerome Mood disorder F39 [place] [address] [place] [address] 04/01/2024 Elena Jerome Mood disorder F39 [facility] [address] [place] [address] 04/08/2024 Jessica Tash Mood disorder F39 [facility] [address] [place] [address] 04/10/2024 Elena Jerome Mood disorder F39 [facility] [address] [place] [address] 04/29/2024 Elena Jerome Mood disorder F39 and Anxiety F41.9 [place] [address] [place] [address] 05/09/2024 Elena Jerome Mood disorder F39 [facility] [address] [address] 08/06/2024 Jessica Tash Mood disorder F39 ; Insomnia G47.00 and Panic disorder F41.[address] [place] [address] 09/30/2024 Vanesa Tracy GERD (gastroesophageal reflux disease) K21.9 ; Abdominal pain R10.9 and Fatty liver disease, nonalcoholic K76.0 [facility] [address] [address] 10/28/2024 Jessica Tash Insomnia G47.00 ; Mood disorder F39 and KAYA (generalized anxiety disorder) F41.[address] [place] [address] 12/02/2024 Vanesa Tracy GERD (gastroesophageal reflux disease) K21.9 ; Abdominal pain R10.9 and Fatty liver disease, nonalcoholic K76.0 [facility] [address] [address] 02/13/2024 Jessica Tash Mood disorder F39 [facility] [address] [address] 03/11/2024 Jessica Tash Mood disorder F39 [facility] [address] [address] 04/08/2024 Aissatou Paula Mood disorder F39 [address] [place] [address] 10/01/2024 Vanesa Tracy [address] [place] [address] 10/14/2024 Vanesa Tracy [facility] [place] [address] 03/29/2024 Aissatou Paula [facility] [place] [address] 03/29/2024 Aissatou Paula [facility] [place] [address] 09/25/2024 Jessica Bianchi Assessments Encounter Date Diagnosis (ICD Code) Assessment Notes Treatment Notes Treatment Clinical Notes Section Notes 04/10/2024 Mood disorder (ICD-10 - F39) 04/08/2024 Mood disorder (ICD-10 - F39) 03/18/2024 Mood disorder (ICD-10 - F39) 03/11/2024 Bipolar 1 disorder, mixed (ICD-10 - F31.60) 03/11/2024 Mood disorder (ICD-10 - F39) 03/11/2024 Anxiety (ICD-10 - F41.9) Continue propranolol. Take as prescribed. Reviewed purpose (decrease anxiety and panic attacks), benefits, and risks - including low pulse rate, low blood pressure, sexual dysfunction, wheezing/asthma attack, weight gain, increased blood sugar, and sedation. Call for problems with medication, side effects or need for dosage change. 03/11/2024 Bipolar 1 disorder, mixed (ICD-10 - [...] side effects or need for dosage change. 05/09/2024 Mood disorder (ICD-10 - F39) 04/29/2024 Mood disorder (ICD-10 - F39) 01/11/2024 Depressed (ICD-10 - F32.9) Will refill FLuoxetine to 20 mg daily to aid depression and anxiety. PHQ-9 score is 21 today; was 13 at last visit. Pt denies SI/HI. Continues to talk to therapist weekly. Pt reports that she stopped taking medications in August. WIll restart meds at this time 12/02/2024 GERD (gastroesophage al reflux disease) (ICD-10 - K21.9) 09/30/2024 GERD (gastroesophage al reflux disease) (ICD-10 - K21.9) 09/30/2024 Abdominal pain (ICD-10 - R10.9) 04/08/2024 Mood disorder (ICD-10 - F39) Begin [...] side effects or need for dosage change. 04/01/2024 Mood disorder (ICD-10 - F39) 03/25/2024 Mood disorder (ICD-10 - F39) 03/01/2024 Anxiety (ICD-10 - F41.9) 10/28/2024 Insomnia (ICD-10 - G47.00) 02/23/2024 Anxiety (ICD-10 - F41.9) 08/06/2024 Insomnia (ICD-10 - G47.00) 08/06/2024 Mood [...] side effects or need for dosage change. 02/16/2024 Anxiety (ICD-10 - F41.9) 02/13/2024 Mood disorder (ICD-10 - F39) 02/13/2024 KAYA (generalized anxiety disorder) (ICD-10 - [...] daily 02/13/2024 Mood disorder (ICD-10 - F39) Continue [...] side effects or need for dosage change. 02/16/2024 MDD (major depressive disorder) (ICD-10 - F32.9) 08/06/2024 Panic disorder (ICD-10 - F41.0) Start [...] side effects or need for dosage change. 02/23/2024 MDD (major depressive disorder) (ICD-10 - F32.9) 10/28/2024 Mood disorder (ICD-10 - F39) BPD [...] side effects or need for dosage change. 03/01/2024 MDD (major depressive disorder) (ICD-10 - F32.9) 09/30/2024 Fatty liver disease, nonalcoholic (ICD-10 - K76.0) 01/11/2024 Anxiety (ICD-10 - F41.9) Will resume Hydroxyzine BID PRN anxiety; pt has not been taking meds since August 2023; encouraged pt to continue to talk with therapist. Pt denies SI/HI 12/02/2024 Abdominal pain (ICD-10 - R10.9) 04/29/2024 Anxiety (ICD-10 - F41.9) 03/11/2024 MDD (major depressive disorder) (ICD-10 - F32.9) Continue Prozac. Antidepressant education - reviewed side effects which may include increased risk of suicide, anxiety, sleep disturbance, nausea, dry mouth, increased bruising, sexual dysfunction, harrison, wt gain, and serotonin syndrome. Need to notify provider if planning or experiencing . Call for problems with medication, side effects or need for dosage change. 01/11/2024 Mood disorder (ICD-10 - F39) Pt reports that she was tolerating the Lamictal well before stopping the medication 4 months ago;. Will restart medications at this time. Pt denies SI/HI 12/02/2024 Fatty liver disease, nonalcoholic (ICD-10 - K76.0) 01/11/2024 Other Discussed treatment planDiscussed sleep hygiene [...] May also contact the 24-hour crisis hotline ([facility]), refer to the closest emergency room [...] aware that this provider will be leaving [facility] as of 01/17/2024 and he will be transitioned to a new provider for his next appointment. 02/13/2024 Other May self-administer medications or be administered own oral medications per [facility] protocols. Provided informed consent with understanding of [...] [] GeneSight Reviewed Encouraged by Jessica Bianchi [facility] to: [] consider utilizing therapist/counselor/so cial worker/psychologist, referral given [] continue with therapist/counselor/so cial worker/psychologist Psychoeducation: -Treatment options discussed in detail with patient/guardian verbalizing understanding of treatment rationales. -Side effects and benefits of all medications prescribed discussed at length between psychiatric prescribing provider and patient/guardian along with the risks associated of pyph-uz-cldx interactions, including but not limited to prescription [...] engaged in treatment plan with Jessica Bianchi [facility]. -Perceiving complete understanding of rationale by patient/guardian and willingness to adhere to formulated plan of care by prescriber with patient/guardian buy-in, willingness to participate actively in plan of care and willing to take charge of own care. -Although geared for female patients, all patients/guardians are informed by prescribing provider of risks of medications that could potentially be taken by female/women within their [place] of influence and that women who use [...] a should occur, to consult with provider, SHREDDED FILLER CIGAR MAKER MACHINE and/or Nurse Patent Solicitor to determine if prescribed medications should or [...] Increase Prozac to 40 mg once daily 03/11/2024 Other May self-administer medications or be administered own oral medications per [facility] protocols. Provided informed consent with understanding of [...] patient/guardian along with the risks associated of rbnd-lv-uzkw interactions, including but not limited to prescription [...] engaged in treatment plan with Jessica Bianchi [facility]. -Perceiving complete understanding of rationale by patient/guardian and willingness to adhere to formulated plan of care by prescriber with patient/guardian buy-in, willingness to participate actively in plan of care and willing to take charge of own care. -Although geared for female patients, all patients/guardians are informed by prescribing provider of risks of medications that could potentially be taken by female/women within their [place] influence and that women who use [...] a should occur, to consult with provider, SHREDDED FILLER CIGAR MAKER MACHINE and/or Nurse Patent Solicitor to determine if prescribed medications should or [...] the importance of handling stress, was discussed. 04/08/2024 Other May self-administer medications or be administered own oral medications per [facility] protocols. Provided informed consent with understanding of [...] Reviewed [] GeneSight Reviewed Encouraged by Jessica ARRINGTONP-BC to: [] consider utilizing therapist/counselor/so cial worker/psychologist, referral given [x] continue with therapist/counselor/so cial worker/psychologist Psychoeducation: -Treatment options discussed in detail with patient/guardian verbalizing understanding of treatment rationales. -Side effects and benefits of all medications prescribed discussed at length between psychiatric prescribing provider and patient/guardian along with the risks associated of gkzk-ss-sakz interactions, including but not limited to prescription [...] and engaged in treatment plan with Jessica ARIASP-BC. -Perceiving complete understanding of rationale by patient/guardian and willingness to adhere to formulated plan of care by prescriber with patient/guardian buy-in, willingness to participate actively in plan of care and willing to take charge of own care. -Although geared for female patients, all patients/guardians are informed by prescribing provider of risks of medications that could potentially be taken by female/women within their [place] influence and that women who use [...] a should occur, to consult with provider, SHREDDED FILLER CIGAR MAKER MACHINE and/or Nurse Patent Solicitor to determine if prescribed medications should or [...] or be administered own oral medications per [facility] protocols. Provided informed consent with understanding of [...] [] GeneSight Reviewed Encouraged by Jessica Bianchi [facility] to: [] consider utilizing therapist/counselor/so cial worker/psychologist, referral given [x] continue with therapist/counselor/so cial worker/psychologist Psychoeducation: -Treatment options discussed in detail with patient/guardian verbalizing understanding of treatment rationales. -Side effects and benefits of all medications prescribed discussed at length between psychiatric prescribing provider and patient/guardian along with the risks associated of fizm-mn-ouwr interactions, including but not limited to prescription [...] engaged in treatment plan with Jessica Bianchi [facility]. -Perceiving complete understanding of rationale by patient/guardian and willingness to adhere to formulated plan of care by prescriber with patient/guardian buy-in, willingness to participate actively in plan of care and willing to take charge of own care. -Although geared for female patients, all patients/guardians are informed by prescribing provider of risks of medications that could potentially be taken by female/women within their [place] and that women who use [...] a should occur, to consult with provider, SHREDDED FILLER CIGAR MAKER MACHINE and/or Nurse Patent Solicitor to determine if prescribed medications should or [...] -Buspirone caused hallucinatio ns -Lexapro caused hives 10/28/2024 Other May self-administer medications or be administered own oral medications per [facility] protocols. Provided informed consent with understanding of [...] Reviewed Encouraged by Jessica Bianchi PMHNP-BC to: [x] consider utilizing therapist/counselor/so cial worker/psychologist, referral given [] continue with therapist/counselor/so cial worker/psychologist Psychoeducation: -Treatment options discussed in detail with patient/guardian verbalizing understanding of treatment rationales. -Side effects and benefits of all medications prescribed discussed at length between psychiatric prescribing provider and patient/guardian along with the risks associated of vjsr-ig-csci interactions, including but not limited to prescription [...] engaged in treatment plan with Jessica Bianchi [facility]. -Perceiving complete understanding of rationale by patient/guardian and willingness to adhere to formulated plan of care by prescriber with patient/guardian buy-in, willingness to participate actively in plan of care and willing to take charge of own care. -Although geared for female patients, all patients/guardians are informed by prescribing provider of risks of medications that could potentially be taken by female/women within their [place] and that women who use [...] a should occur, to consult with provider, SHREDDED FILLER CIGAR MAKER MACHINE and/or Nurse Patent Solicitor to determine if prescribed medications should or [...] the importance of handling stress, was discussed. Plan Of Treatment No Information Insurance Providers Payer Name Payer Address Payer Phone Subscriber Number Group Number Insured Name Patient Relationship to Insured Coverage Start Date Coverage End Date [facility] [employer] [facility] Attn Claims Department [address] [place] [phone] [id number] Krista Mustafa Self - patient is the insured 2 [employer] [address] [place] [phone] [id number] Krista Mustafa Self - patient is the insured 1 [facility] Att[facility] Claims Department [address] [address] [id number] Krsita Mustafa Self - patient is the insured 4 [employer] [facility] Attn Claims Department [address] [place] [phone] [id number] Krista Mustafa Self - patient is the insured 4 Medical (General) History Medical History History ICD Code asthma IBS vs Crohns Migraines non-alcoholic fatty liver disease Surgical History Surgery Date(Month/Year) Tonsillectomy 06/28/2011 Tonsillectomy 06/2011 C section 2020 06/17/2020 Hospitalization History Reason Date(Month/Year) Flu during 2020
--- OUTSIDE RECORDS SUMMARY | 2024-12-25 02:22 | XMS_ITS | Clinical Summary ---
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 Gender Identity Female 09/07/2022 6:45 AM CDT Sexual Orientation Not on file Obstetrics History Last Filed Vital Signs Vital Sign Reading Time Taken Comments Blood Pressure 108/74 02/07/2023 1:34 PM CDT Pulse 88 02/07/2023 1:34 PM CDT Temperature 36.6 C (97.9 F) 06/17/2020 7:49 AM FUNERAL HOME ATTENDANT Respiratory Rate - - Oxygen Saturation 98% [...] to complete this topic Insurance [id number] [place] [id number] [facility] Care Teams Receivable Manager Relationship Specialty Start Date End Date Ayala Matute MD [address] [place] [id number] PCP - General Obstetrics and Gynecology 11/21/23
--- NOTE | 2024-12-25 10:38 | WPDHPUPDATE1 ---
History and Physical Update Update Date/Time: 12/25/24 10:38 History and Physical has been reviewed, including an updated exam of the patient. There are NO changes in the patient's condition. Risks, benefits, and alternatives have been discussed and questions answered. Patient agrees to proceed with procedure.
[2024-12-25] MEDS: ACETAMINOPHEN 500 MG TABLET 1000 MG PO (12:24)
[2024-12-25] MEDS: KETOROLAC 15 MG/ML VIAL (*BKC) IV PUSH ×2 (12:25→16:53)
[2024-12-25] MEDS: LACTATED RINGERS 1,000 ML 30 ML IV CONT ×2 (12:32→15:55)
[2024-12-25 12:33] LABS: BEDSIDEPREGUCG Negative (Negative)
[2024-12-25] MEDS: SCOPOLAMINE 1 MG PATCH 1 PATCH TRANSDERM (13:07)
--- NOTE | 2024-12-25 13:42 | WPDANESEPPF ---
Anes - Initial Pre Proc Eval Procedure: Operation Date: 12/25/24 13:30 Proposed Procedures p Laparoscopic Cholecystectomy - Anabella Frey MD Date/Time: 12/25/24 13:42 Surgeon: Anabella Frey MD Pre Op Diagnosis: chronic cholecystitis Patient Data Age: 29 Gender: F Height: 1.63 m Weight: 91.9 kg Last Vital Signs Temp 98.4 F 12/25/24 12:27 Pulse 87 12/25/24 12:27 Resp 18 12/25/24 12:27 BP 116/69 12/25/24 12:27 Pulse Ox 100 12/25/24 12:27 O2 Del Method Room Air 12/25/24 12:27 Allergies Allergy/AdvReac Type Severity Reaction Status Date / Time escitalopram Allergy Unknown Unknown Verified 12/25/24 12:23 sulfamethoxazole AdvReac Unknown Nausea and Verified 12/25/24 12:23 Vomiting trimethoprim AdvReac Unknown Nausea and Verified 12/25/24 12:23 Vomiting Home Medications ?Medication ?Instructions ?Recorded ?Confirmed ?Type ondansetron HCl 4 mg tablet 4 mg PO Q6H 03/31/20 12/18/24 History (Zofran) drospirenone 3 mg-estetrol 14.2 mg See Rx Instructions PO .COMPLEX 12/17/24 12/18/24 History (28) tablet (Nextstellis) famotidine 40 mg tablet 40 mg PO DAILY 12/17/24 12/18/24 History naproxen 500 mg tablet 500 mg PO BID 12/17/24 12/18/24 History omeprazole 40 mg capsule,delayed 40 mg PO DAILY 12/17/24 12/18/24 History release Laboratory Tests 12/25/24 12:27 POC Urine HCG, Qual Negative (Negative) Patient hx anesthesia problems: none Family hx anesthesia problems: none Results Review: All pre-operative results and documents have been reviewed as part of the pre-operative evaluation. [facility] Past Medical History Medical History (Updated 12/17/24 @ 16:38 by Hazel Alexis CMA) Irritable bowel syndrome (IBS) Hyperlipidemia Migraine GERD (gastroesophageal reflux disease) Gallbladder disorder Anxiety Anemia Allergies Patient denies significant medical history Surgical History Surgical History (Updated 12/17/24 @ 13:30 by Noy Wiley CMA) Hx of section 2020 Family History Family History Father Alcoholism Depression Heart problem Hypertension Thyroid disorder Mother Alcoholism Asthma Depression Heart problem Hypertension Sibling Alcoholism Depression Grandparent Alcoholism Asthma Depression Heart problem Hypertension Cerebrovascular accident Grandparent No problems noted. Social History Social History (Updated 12/17/24 @ 13:35 by Noy Wiley CMA) Smoking status: Never smoker Do You Feel Safe in your Home?: Yes Lack of Transportation: No Lack of Food: Sometimes True Current Housing: I Have Housing Concerned About Future Housing: No Difficulty Paying Gas/Electric Bills: YES Difficulty Paying for Meds: No Currently Unemployed: No Education: High School Diploma/GED Difficulty w/ Childcare or Family Care: YES Living arrangements: with family Gender identity (if verbalized by the patient): Female Spiritual care concerns: No Anes - Eval Final PreProcedure Day of Procedure 12/25/24 13:42 Patient weight: obese Heart: regular rate and rhythm Lungs: clear to auscultation Airway: Mallampati scale class II Neurological: alert and oriented Last oral intake: >/= 8 hours ASA classification: II Emergent: no Anesthetic plan: proceed Anesthesia type and monitoring: general ETT and standard monitoring Results Review: All pre-operative results and documents have been reviewed as part of the pre-operative evaluation. Informed Consent: The patient's anesthetic plan and its attendant risks and benefits were discussed with the patient/family/POA. Questions were solicited and answers provided to the satisfaction of the patient/family/POA.
[2024-12-25] MEDS: ceFAZolin 2 GM in SODIUM CHLORIDE 0.9% IV 50 ML 100 ML IVPB (14:06)
--- NOTE | 2024-12-25 14:37 | S_PTH ---
PATIENT: Krista Mustafa LOC: [facility] U#:[id number] AGE/SX: 29/F ROOM: RE12/25/[address]: Anabella Frey MD : 1995 BED: DIS: 12/25/2024 SPEC #: [id number] RECD: 12/26/24 09:05 STATUS: LAZ KESSLER #: [id number] THERESA: 12/25/24 14:[address]: Anabella Frey DEPT: [facility] Surgical RECD BY: Kathie Vela Tissues: A - Gallbladder Procedures: Hematoxylin and Eosin Stain Gross and Microscopic Level 3
--- NOTE | 2024-12-25 14:45 | W.PM.PROC2 ---
Procedure Note - Detailed Date of Procedure 12/25/24 Pre-op Diagnosis cholecystitis Post-op Diagnosis Other ( hydrops cholecystitis) Procedure Performed Laparoscopic cholecystectomy Surgeon Anabella Frey MD Anesthesia General and Local Indications 29-year-old female presenting with cholecystitis by both history and imaging Findings acute hydrops cholecystitis Description of Procedure The patient was taken to the operating room placed in the supine position. After adequate induction of general anesthesia, the patient was prepped and draped in normal sterile fashion. A time-out was then performed to verify the patient's identity as well as the procedure being performed. I then made a 5 mm incision in the infraumbilical region. Through this, a Veress needle was placed into the peritoneal cavity and CO2 gas was then insufflated. After adequate pneumoperitoneum was achieved, the Veress needle was removed and a 5 mm optiview trocar was placed through this incision under direct visualization. I then placed the laparoscope through this trocar site and under direct visualization placed a further 12 mm subxiphoid port as well as 2 additional 5 mm ports in the right upper abdomen. The gallbladder was then identified and was noted to be inflamed and distended. Given the inflammation, the gallbladder was decompressed and hydrops cholecystitis was noted at this point. Once decompressed, I was able to place a grasper at the dome of the gallbladder and this was retracted anterior and cephalad up over the liver. A 2nd retractor was then placed at the infundibulum and retracted laterally, this allowed visualization of the triangle of Calot. I then was able to visualize the cystic duct in its entirety from its proximal insertion into the gallbladder, to its distal junction with the common hepatic/common bile duct junction. At this point, I carefully skeletonized the proximal cystic duct with the [place] dissector. I then clipped and transected the proximal cystic duct. Next I visualized the cystic artery. Again the artery was skeletonized, clipped, and transected. I then used the Bovie cautery to take down the peritoneal attachments of the gallbladder off the liver bed. This was somewhat difficult given the amount of inflammation in the posterior space. Once the gallbladder specimen was completely detached, an endo-pouch was placed through the 12 mm port site. I then placed the gallbladder specimen into the Endo pouch and removed the endo-pouch from the 12 mm port site. The specimen will now be sent to pathology for further review. I then copiously irrigated the right upper quadrant. Hemostasis was noted in the liver bed, the clips were noted to be in good position on both the cystic duct stump and the cystic artery stump. No other pathology was noted in the right upper quadrant. I then moved the laparoscope to the subxiphoid port. No iatrogenic injury or other pathology was noted in the lower abdomen. I then closed the 12 mm trocar site under direct visualization using the Kole cone and 0 Vicryl suture. At this point, the abdomen was desufflated and all ports removed. All port sites were then closed with 4.O Monocryl subcuticular sutures. Dermabond was placed on each incision. The patient tolerated the procedure well, was extubated in the operating room postoperative and will be transferred to the recovery room in stable condition Estimated Blood Loss 5 Drains No Packing No Pathology Yes Complications No immediate complications Condition Stable Disposition PACU [facility] Billing Surgery - Charge Forward: Surgery Billing
[2024-12-25] MEDS: fentaNYL CITRATE INJ (*CRX) 100 MCG/2 ML VIAL 25 MCG IV PUSH ×5 (15:07→16:39)
[2024-12-25] MEDS: ONDANSETRON INJ 4 MG/2 ML VIAL IV PUSH (15:31)
[2024-12-25] MEDS: oxyCODONE HCL (*CRX) 5 MG TAB IR PO (16:00)
[2024-12-25] MEDS: HYDROmorphone HCL INJ (*CRX) 1 MG/ML SYR 0.5 MG IV PUSH (16:53)
== END 2024-12-25 17:20 | disposition home or self-care (01) ==
PROVIDERS: Visit Provider Surgery
PROC: 0FT44ZZ Resection of Gallbladder, Percutaneous Endoscopic Approach (ICD-10-PCS; CPT 47562; principal; 2024-12-25 13:30)
DX: K81.0 Acute cholecystitis (principal); K82.1 Hydrops of gallbladder; E66.9 Obesity, unspecified; Z68.34 Body mass index [BMI] 34.0-34.9, adult
CPT/HCPCS: 47562; 88304; J0690; A9270; J1100; J1171; J1200; J1885; J2250; J2405; J2704; J3010; J7030; J7120

== ENCOUNTER 2024-12-29 | Emergency (ER) | payer OTHER, SELFPAY ==
[2024-12-29 00:02] VITALS: BP 131/70; PULSE 100; RESP 20; TEMP 37; O2SAT 100
--- OUTSIDE RECORDS SUMMARY | 2024-12-29 01:29 | XMS_ITS | Clinical Summary ---
Author Organization [facility] [address] [facility] Address [address] [place] [address] Care Team Providers Care Pharmacy Technician Inpatient Name Role Phone Ayala Matute MD Primary Care Provider [phone] Allergies Active Allergy Reactions Criticality Noted Date [...] on file Legal Sex Female 6:06 PM FAMILY PRACTICE NURSE PRACTITIONER Gender Identity Female 09/07/2022 6:45 AM CDT Sexual Orientation Not on file Obstetrics History Last Filed Vital Signs Vital Sign Reading Time Taken Comments Blood Pressure 108/74 02/07/2023 1:34 PM CDT Pulse 88 02/07/2023 1:34 PM CDT Temperature 36.6 C (97.9 F) 06/17/2020 7:49 AM FAMILY PRACTICE NURSE PRACTITIONER Respiratory Rate - - Oxygen Saturation 98% [...] patient's age to complete this topic Insurance [facility] Care Teams Pharmacy Technician Inpatient Relationship Specialty Start Date End Date Ayala Matute MD [address] [place] [id number] PCP - General Obstetrics and Gynecology 11/21/23
== END 2024-12-29 01:15 | disposition left against medical advice (07) ==
DX: R10.9 Unspecified abdominal pain (principal)
CPT/HCPCS: 99199

== ENCOUNTER 2025-01-08 11:04 | Outpatient (CLI) | payer OTHER, SELFPAY ==
--- NOTE | ~2025-01-08 | CT_ITS ---
EXAMINATION: CT abdomen w con DATE: 01/08/2025 11:29 INDICATION: Other acute post procedural pain. TECHNIQUE: Computed tomography (CT) of the abdomen was performed with 100 mL Omnipaque 350 intravenous contrast. Automated exposure control and iterative reconstruction technique were employed. The dose-length product was 518.23 mGy-cm. COMPARISON: CT abdomen and pelvis 11/03/2013 FINDINGS: The visualized portions of lung bases demonstrate mild atelectasis. No pleural effusion. The heart size is normal. No pericardial effusion. The liver demonstrates focal steatosis adjacent to ligamentum teres. There are changes of cholecystectomy. The spleen, pancreas, adrenal glands, and kidneys are normal. There are no dilated loops of bowel. The appendix is normal. There is mild mesenteric lymphadenopathy in right abdomen. There is no free intraperitoneal fluid. There is fat stranding in right anterior abdominal wall, consistent with inflammation after surgery. There is mild thoracic and lumbar spondylosis. IMPRESSION: 1. Mild mesenteric lymphadenopathy in right abdomen, likely reactive. Reviewed, dictated and finalized at location E.
--- OUTSIDE RECORDS SUMMARY | 2025-01-08 11:58 | XMS_ITS | Clinical Summary ---
Author Organization [facility] [address] 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 Gender Identity Female 09/07/2022 6:45 AM CDT Sexual Orientation Not on file Obstetrics History Last Filed Vital Signs Vital Sign Reading Time Taken Comments Blood Pressure 108/74 02/07/2023 1:34 PM CDT Pulse 88 02/07/2023 1:34 PM CDT Temperature 36.6 C (97.9 F) 06/17/2020 7:49 AM ASSISTANT CHIEF OF POLICE Respiratory Rate - - Oxygen Saturation 98% [...] patient's age to complete this topic Insurance [facility] Care Teams Boiler Blower Relationship Specialty Start Date End Date Ayala Matute MD [address] [place] [id number] PCP - General Obstetrics and Gynecology 11/21/23
[2025-01-08 14:05] LABS: Hematocrit 39.7 % (37.0-47.0); Hemoglobin 12.2 g/dL (12.0-15.0); Immature Granulocyte Percent A 0.4 % (0-0.5); Lymphocytes Absolute Auto 1.61 K/mm3 (0.9-3.2); Mean Corpuscular HGB Conc 30.7 g/dl (32-36); Mean Corpuscular Hemoglobin 26.1 pg (26-34); Mean Corpuscular Volume 84.8 fl (80-100); Nucleated Red Blood Cells Absolute Auto 0.000 K/mm3 (0.0-0.012); Nucleated Red Blood Cells Perc 0.0 % (0.0-0.2); Platelet Count Result 276 k/mm3 (150-375); Red Blood Count 4.68 M/mm3 (4.2-5.4); White Blood Count 7.0 K/mm3 (4.5-10.0)
[2025-01-08 14:14] LABS: Alanine Aminotransferase 18 U/L (6-35); Albumin Level 4.4 g/dL (3.5-5.1); Alkaline Phosphatase 63 U/L (38-126); Anion Gap 9 mmol/L (4-12); Aspartate Amino Transferase 23 U/L (14-36); Bilirubin,Total 0.9 mg/dL (0.2-1.3); Blood Urea Nitrogen 8 mg/dL (7-17); Calcium 9.2 mg/dL (8.4-10.2); Carbon Dioxide 25 mmol/L (22-30); Chloride 106 mmol/L (98-107); Estimated Glomerular Filt Rate > 60; Glucose 75 mg/dL (65-110); Potassium 3.4 mmol/L (3.4-5.0); Sodium 140 mmol/L (137-145); Total Protein 7.2 g/dL (6.3-8.2)
== END 2025-01-08 11:05 | disposition home or self-care (01) ==
LOC: ANHIMG 11:09
PROVIDERS: Visit Provider Surgery
DX: G89.18 Other acute postprocedural pain (principal); Z90.49 Acquired absence of other specified parts of digestive tract; Z79.1 Long term (current) use of non-steroidal anti-inflammatories (NSAID); Z79.899 Other long term (current) drug therapy
CPT/HCPCS: 36415; 74160; 80053; 85025; Q9967